=== PATIENT | female | born 1985 | race Caucasian/White ===

== ENCOUNTER 2021-07-20 21:34 | Emergency (ER) | payer MEDICARE, MEDICAID, SELFPAY ==
[2021-07-20 22:10] VITALS: BP 125/87; PULSE 75; RESP 17; TEMP 36.7; O2SAT 100; BMI 45.6
--- NOTE | 2021-07-21 00:01 | ED_ITS ---
HPI - General Adult General Chief complaint: General Medical Stated complaint: numbness, weakness Time Seen by Provider: 07/20/21 22:57 Source: patient Mode of arrival: ambulatory Limitations: no limitations History of Present Illness HPI narrative: 35-year-old female who presents emergency department for evaluation of left arm, left leg numbness and incoordination of her left arm and left leg. Patient states that her symptoms started 2 months ago. She states that at that time she had chest pain and shortness of breath. She then developed numbness and tingling S of both hands and feet. She also had numbness of her lips. She states that she was concerned that she was having a stroke and went to an emergency department. She was told that she was dehydrated. She states that since that time, she has had intermittent numbness of her right arm and right leg. She has also had persistent numbness of her left arm and left leg. She states that she has also developed incoordination of her left arm and left leg and states that she is frequently dropping things. She states that she occasionally loses her balance as well. She states that today her left arm felt very heavy in the numbness was more severe therefore she came to the emergency department for evaluation. She states that she has seen her PCP and has been referred to a neurologist. She is also scheduled to have a nerve conduction study. She denied fever, chills, chest pain, shortness of breath, nausea, vomiting. Related Data Allergies Allergy/AdvReac Type Severity Reaction Status Date / Time erythromycin base Allergy Severe ANAPHYLAXIS Verified 07/20/21 22:09 [ERYTHROMYCIN BASE] Penicillins [PENICILLINS] Allergy Severe ANAPHYLAXIS, Unverified 08/04/20 19:43 ITCHING ziprasidone [From GEODON] Allergy Unknown NEUROLOGICA Unverified 08/04/20 19:43 L diphenhydramine AdvReac Unknown PANIC Unverified 08/04/20 19:43 [From BENADRYL] ATTACK divalproex sodium AdvReac Unknown NEUROLOGICA Unverified 08/04/20 19:43 [From DEPAKOTE] L Review of Systems Review of Systems: Yes all other systems are reviewed and are negative [facility] Past Medical History Medical History (Updated 07/21/21 @ 00:03 by Sam Barth MD) Depression Migraines Obesity PCOS (polycystic ovarian syndrome) PTSD (post-traumatic stress disorder) Surgical History (Updated 07/20/21 @ 22:12 by Annie Alexander RN) History of ankle surgery S/P cholecystectomy Social History Social History Advance Directives: No Patient : No Physical Exam Vital Signs: Vital Signs: Last Vital Signs Temp 98.0 F 07/20/21 22:10 Pulse 75 07/20/21 22:10 Resp 17 07/20/21 22:10 BP 125/87 07/20/21 22:10 Pulse Ox 100 07/20/21 22:10 Body Mass Index 45.6 Const: General: cooperative and no acute distress Orientation/consciousness: oriented to person and oriented to place Limitations: no limitations HENMT: Head: Yes normal to inspection, Yes normocephalic and Yes atraumatic Ears: external ears normal General nose exam: Normal external nose present Face and sinus: Yes normal facial exam Mouth: Normal oral and palatal mucosa present Throat: Yes posterior oropharynx normal Eyes: General: appearance normal, both eyes and all related structures Pupils: Equal, round and reactive pupils present Neck: Neck: Yes normal visual inspection, Yes no lymphadenopathy, Yes trachea midline and Yes supple Chest: Chest palpation & inspection: normal inspection of the chest and normal palpation of entire chest wall Resp: Effort & Inspection: normal respiratory effort and able to speak in complete sentences Auscultation: clear to auscultation bilaterally Cardio: Rate: regular rate Rhythm: regular rhythm Heart sounds: S1 david l heart sound present, S2 normal heart sound present and no murmurs GI: Inspection: Yes normal to inspection and Yes obesity Palpation (GI): Soft to palpation, nontender and no guarding Auscultation: normal bowel sounds : General: Yes no CVA tenderness Back/Spine/Pelvis: Back: no CVA tenderness Skin: General skin exam: no rashes or lesions noted Neuro: General: oriented to person and oriented to place Cranial nerves: Yes CN's II-XII intact bilaterally and Yes Equal, round and reactive pupils present Cognition (Neuro): normal cognition Gait exam (Neuro): Normal gait present Motor exam (neuro): 5/5 motor strength present throughout Sensory Exam: other (Normal light touch bilaterally) Deep tendon reflexes (DTR's): Rt Biceps (C5, C6): 1+, Right brachioradialis reflex intensity grade: 1+, Right patellar reflex intensity grade: 1+ and Left patellar reflex intensity grade: 1+ Coordination: [id number] test normal and [id number]-[id number] test normal Extrem: General: Yes normal to inspection Psych: Appearance: grossly normal Speech and movement: Normal speech and movement present Affect: normal affect Attitude: cooperative Thought process: Normal thought process present Thought content: Normal thought content present Course Course Course Narrative: 35-year-old female who presents emergency department for evaluation of persistent numbness of her left arm and left leg with intermittent numbness of the right arm and right leg. She also complains of incoordination of her left arm and states that she is having difficulty walking and occasional ly tripping secondary to numbness of her left leg. Patient states that her left arm symptoms got worse today so she came to the emergency department for evaluation. Patient's symptoms began 2 months prior after she had an episode chest pain and shortness of breath. The initial onset is consistent with panic attacks/hyperventilation syndrome however this does not explain his persistent numbness and her incoordination of the left side. The patient's physical examination revealed a nonfocal neurologic exam with normal reflexes. At this time I do not have a clear cause for her symptoms. The patient was discharged home she was given a note not return to work for 4 days and she was advised to follow-up with her PCP. Discharge Plan Discharge Clinical Impression: Numbness and tingling of left arm and leg Patient Disposition: Home, Self-Care Instructions: Paresthesia (ED) Additional Instructions: At this time I do not have a clear cause for the numbness of your left arm and left leg. Your neurologic exam was unremarkable and you did have normal reflexes which is reassuring. Follow-up with your neurologist as scheduled and with your PCP for further evaluation Follow-up with your doctor in 2 days. Please return to the emergency department if your symptoms get worse or if you develop any symptoms that are concerning to you. Stand Alone Forms: Work/School Release
== END 2021-07-21 00:28 | disposition home or self-care (01) ==
PROVIDERS: Emergency Provider Emergency Medicine Emergency Medical Services; PCP Nurse Practitioner Adult Health
DX: R20.0 Anesthesia of skin (principal); M54.2 Cervicalgia
CPT/HCPCS: 99283

== ENCOUNTER 2021-09-30 12:38 | Emergency (ER) | payer MEDICARE, MEDICAID, SELFPAY ==
[2021-09-30 12:43] VITALS: BP 133/76; PULSE 89; RESP 18; TEMP 36.8; O2SAT 96; BMI 45.6
--- NOTE | 2021-09-30 14:27 | ED.GENADULT ---
HPI - General Adult General Chief complaint: Dental/Oral Stated complaint: dental pain Time Seen by Provider: 09/30/21 14:27 Source: patient Mode of arrival: ambulatory Limitations: no limitations History of Present Illness HPI narrative: 36-year-old female is here today for complaining of tooth pain. Patient was seen by her dentist 3 days ago and he tried to extract her molar #18 and he was unable to do that. Patient was referred to Oral surgery and unable to get an appointment until October. Patient has a mild swelling to her left jaw and reports to have a lot of pain. She was put on clindamycin and today is the 2nd day of the antibiotic. Patient is in the latter pain and seeking something to help her with the pain. Onset (ago): day(s) Location: mouth Severity scale (1-10): 9 (Take ibuprofen at home) Quality: aching Related Data Previous Rx's Medication Instructions Recorded clindamycin HCl 300 mg capsule 300 mg PO Q8H 7 Days #21 cap 09/30/21 oxycodone 5 mg tablet 5 mg PO Q4-6H PRN #7 tab 09/30/21 Allergies Allergy/AdvReac Type Severity Reaction Status Date / Time erythromycin base Allergy Severe ANAPHYLAXIS Verified 09/30/21 12:43 [ERYTHROMYCIN BASE] Penicillins [PENICILLINS] Allergy Severe ANAPHYLAXIS, Verified 09/30/21 12:43 ITCHING ziprasidone [From GEODON] Allergy Unknown NEUROLOGICA Verified 09/30/21 12:43 L diphenhydramine AdvReac Unknown PANIC Verified 09/30/21 12:43 [From BENADRYL] ATTACK divalproex sodium AdvReac Unknown NEUROLOGICA Verified 09/30/21 12:43 [From DEPAKOTE] L Review of Systems Review of Systems: Constitutional : No Weight loss, No Fever, No Chills, No Night Sweats, No Fatigue, No Malaise ENT/Mouth : No Hearing loss, No Ear Pain, No Nasal Congestion, No Sinus Pain, No Hoarseness, No sore throat, No Rhinorrhea, No Swallowing Difficulty, dental pain Eyes: No Eye Pain, No Swelling, No Redness, No Foreign Body, No Discharge, No Vision Changes Cardiovascular : No Chest Pain, No SOB, No Dyspnea on Exertion, No Orthopnea, No Edema, No Palpitations Respiratory : No Cough, No Sputum, No Wheezing, No Smoke Exposure, No Dyspnea Gastrointestinal : No Nausea, No Vomiting, No Diarrhea, No Constipation, No abdominal Pain, No Hematochezia, No Melena Genitourinary : no irregular bleeding, No Dysuria, No Urinary Frequency, No Hematuria, No Urinary Incontinence, No Urgency, No Flank Pain, No Urinary Flow Changes, No Hesitancy Musculoskeletal : No joint pain, No Myalgias, No Joint Swelling Skin : No Skin Lesions, No rash Neuro : No Weakness, No Numbness, No Paresthesias, No Loss of Consciousness, No Dizziness, No Headache Psych : No Anxiety/Panic, No Depression, No SI/HI/AH/VH, No Social Issues, Yes all other systems are reviewed and are negative [facility] Past Medical History Medical History (Updated 09/30/21 @ 14:35 by Bianca Streeter [facility]) Depression Migraines Obesity PCOS (polycystic ovarian syndrome) PTSD (post-traumatic stress disorder) Surgical History History of ankle surgery S/P cholecystectomy Social History Social History Advance Directives: No Advance Directives Information Provided: No Patient : No Physical Exam Vital Signs: Vital Signs: Last Vital Signs Temp 98.3 F 09/30/21 12:43 Pulse 89 09/30/21 12:43 Resp 18 09/30/21 12:43 BP 133/76 09/30/21 12:43 Pulse Ox 96 09/30/21 12:43 Body Mass Index 45.6 Const: General: healthy appearing, no acute distress and well developed Nutritional Appearance: well nourished Orientation/consciousness: patient oriented x3 HENMT: Head: Yes normal to inspection, Yes normocephalic and Yes atraumatic Ears: hearing grossly normal bilaterally, external ears normal and TM's normal bilaterally General nose exam: Normal external nose present and Normal nares present Face and sinus: Yes normal facial exam Mouth: Normal oral and palatal mucosa present Teeth and gingiva: abnormal tooth and associated gingiva Teeth image: 1. Dental caries Throat: Yes posterior oropharynx normal, Yes tonsils normal and Yes uvula midline Eyes: General: appearance normal, both eyes and all related structures Neck: Neck: Yes normal visual inspection, Yes full ROM and Yes trachea midline Thyroid: Thyroid normal Resp: Effort & Inspection: normal respiratory effort, able to speak in complete sentences, no tracheal deviation and symmetric chest movement Auscultation: clear to auscultation bilaterally Cardio: Jugular venous distension: no JVD Rate: regular rate Rhythm: regular rhythm Heart sounds: S1 normal heart sound present, S2 normal heart sound present, no gallops and no murmurs GI: Inspection: Yes normal to inspection and No distended Palpation (GI): Soft to palpation, not firm, nontender and No hepatosplenomegaly present Auscultation: normal bowel sounds : General: Yes no CVA tenderness Back/Spine/Pelvis: Back: no CVA tenderness Skin: General skin exam: elasticity normal, turgor normal and dry skin Neuro: General: patient oriented x3 Psych: Appearance: grossly normal Mental Status: mental status grossly normal Speech and movement: Normal speech and movement present Affect: normal affect Attitude: cooperative Thought process: Normal thought process present Thought content: Normal thought content present Insight: Good insight present (Psych) Judgement: Good judgement present (Psych) Course Course Course Narrative: 36-year-old female with complaining of tooth pain. Patient was supposed to have her tooth extracted however her dentist was unable to do that and refer her to oral surgery. Patient is unable to get an appointment until October. # 18 molar, mild gingivitis and no abscess. Patient is taking clindamycin 2nd day today, was taking ibuprofen with not much relief. Will send her script for oxycodone and clindamycin 300 mg. Patient is unsure of what dose is she taking. She was instructed to call oral surgery on Saturday for sooner appointment. Discussed with her the only way that she will get rid of the infection is by getting rid of the tooth. Discharge Plan Discharge Clinical Impression: Toothache, Dental caries Patient Disposition: Home, Self-Care Instructions: Toothache (ED) Additional Instructions: You were seen here today for complaining of tooth pain. Please continue the antibiotics that were given to you by your dentist. Continue ibuprofen to decrease the swelling. You will be given script for oxycodone to help with the pain. Please make sure you do not drive when you take this medication or drink alcohol. Please make sure that you call the oral surgeons for tooth extraction. You may return to emergency department if you symptoms will get worse or if you experience any additional concerning symptoms. Prescriptions: New clindamycin HCl 300 mg capsule 300 mg PO Q8H 7 Days Qty: 21 RF: 0 oxycodone 5 mg tablet 5 mg PO Q4-6H PRN (Reason: pain) Qty: 7 RF: 0 Interventions: ED Discharge Assessment Last Done: 09/30/21 14:41 Discharge Date/Time: 09/30/21 14:41
== END 2021-09-30 14:41 | disposition home or self-care (01) ==
PROVIDERS: Emergency Provider Emergency Medicine Emergency Medical Services
DX: K02.9 Dental caries, unspecified (principal); Z79.899 Other long term (current) drug therapy
CPT/HCPCS: 99283

== ENCOUNTER 2021-11-05 13:52 | Emergency (ER) | payer MEDICARE, MEDICAID, SELFPAY ==
--- NOTE | ~2021-11-05 | CT_ITS ---
EXAMINATION: CT FACIAL BONES WITHOUT CONTRAST CLINICAL INFORMATION: Jaw swelling. COMPARISON: [facility] dated from 07/14/2019. TECHNIQUE: Noncontrast CT images of the maxillofacial structures with axial, coronal and sagittal reformats. This CT examination was performed using dose optimization techniques as appropriate, variously including the following: *Automated exposure control *Adjustment of mA and/or kV according to patient size (this includes techniques or standardized protocols for targeted exams where dose is matched to indication/reason for exam; i.e. extremities or head) *Use of iterative reconstruction technique DLP: 517 mGy-cm FINDINGS: There is no acute maxillofacial fracture. The pterygoid plates are intact. The zygomatic arches are intact. The lamina papyracea are intact. The orbital rims are intact. There is mucosal thickening of the paranasal sinuses with inspissated mucous secretions in both maxillary sinuses and partial opacification of the ethmoidal air cells.. No air-fluid levels are seen. There is right deviation of the nasal septum. There are several periapical lucencies, including a cavity within a tooth extraction in the area of the left inferior posterior molar (8:71). Postsurgical changes in the right mastoid. Left mastoid is clear. The orbits are normal. 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 The imaged portions of the brain demonstrate no acute abnormality. CT/CT facial bones wo con IMPRESSION: No acute intracranial process or discrete facial bone fracture. Paranasal sinus disease. Correlate clinically for the presence of acute sinusitis. Periapical disease, recommend dental referral.
[2021-11-05 15:03] VITALS: BP 134/88; PULSE 99; RESP 20; TEMP 35.9; O2SAT 98; BMI 44.3
[2021-11-05 18:35] VITALS: BP 128/78; PULSE 78; RESP 18; TEMP 36.6; O2SAT 98
[2021-11-05 19:39] LABS: COVID-19 Test Negative (Negative)
[2021-11-05 21:55] VITALS: BP 132/84; PULSE 86; RESP 18; TEMP 36.4; O2SAT 100
--- NOTE | 2021-11-06 00:47 | PC.NURSE ---
PT HAD FALLEN OFF TRACKER AND ADONIS TOBIAS SIGNED DR JOSHI NAME TO PT BY MISTAKE AND DR JOSHI WAS NOT AWARE. PT FINE IN ROOM SEEN BY ADONIS TOBIAS.
[2021-11-06 00:49] LABS: Basophils Percent Auto 0.3 % (0-2); Eosinophils Percent Auto 0.6 % (0-4); Hematocrit 39.1 % (37.0-47.0); Hemoglobin 12.8 g/dl (12.0-16.0); Imm Gran Abs Auto 0.01 X10*3/uL (0.00-0.03); Imm Gran Pct Auto 0.2 % (0.0-0.4); Lymphocytes Absolute Auto 1.2 X10*3/uL (1.2-4.9); Lymphocytes Percent Auto 18.8 % (20-40); MANUAL DIFF FLAG NO; Mean Corpuscular HGB Conc 32.7 g/dl (31.0-35.0); Mean Corpuscular Hemoglobin 28.1 pg (27.0-33.0); Mean Corpuscular Volume 85.9 fL (80.0-98.0); Mean Platelet Volume 8.3 fL (9.4-12.3); Monocytes Absolute Auto 0.5 X10*3/uL (0.1-1.2); Monocytes Percent Auto 8.2 % (2-11); Neutrophils Absolute Auto 4.6 x10*3/uL (2.0-8.3); Neutrophils Percent Auto 71.9 % (45-73); Platelet Count 254 X10*3/uL (160-400); Red Blood Count 4.55 X10*6/uL (4.20-5.50); White Blood Count 6.3 X10*3/uL (4.8-10.8)
[2021-11-06 01:10] LABS: Alanine Aminotransferase 50 U/L (0-31); Albumin Level 4.3 g/dL (3.5-5.0); Alkaline Phosphatase 66 U/L (39-117); Anion Gap 13 (12-20); Aspartate Amino Transferase 50 U/L (5-31); Bilirubin Total 0.6 mg/dL (0.0-1.0); Blood Urea Nitrogen 9 mg/dL (9-16); Calcium 9.4 mg/dL (8.4-10.2); Carbon Dioxide 26 mmol/L (22-29); Chloride 104 mmol/L (96-108); Creatinine Clr Calc Pharmacy 138.9; Estimated Glomerular Filt Rate > 60; Glucose Random 94 mg/dL (60-115); Sodium 139 mmol/L (135-145); Total Protein 7.7 g/dL (6.5-8.0)
--- NOTE | 2021-11-06 01:50 | ED.DENTAL ---
HPI - Dental/Oral General Chief complaint: Dental/Oral Stated complaint: L SIDE OF FACE NUMBNESS DENTAL PAIN INFECTION Time Seen by Provider: 11/05/21 15:58 Source: patient Mode of arrival: ambulatory Limitations: no limitations History of Present Illness HPI Narrative: 36-year-old female presents for 1 week of sore throat, and of pain in her left jaw and pain in the left side of her face and her left sinuses. For patient has had dental Maharaj in her left lower molar, and she had a tooth extracted 6 weeks ago. However, oral surgeon could not get all of the tooth fragments, so 1 week ago, she had another surgery to extract all of the tooth fragments. She has been on clindamycin off and on for the last 6 weeks. States she had a fever of 102 today, did not take any antipyretics prior to arriving in the ER. Vitals are stable here, afebrile Related Data Previous Rx's Medication Instructions Recorded clindamycin HCl 300 mg capsule 300 mg PO Q8H 7 Days #21 cap 09/30/21 oxycodone 5 mg tablet 5 mg PO Q4-6H PRN #7 tab 09/30/21 doxycycline hyclate 100 mg tablet 100 mg PO BID 10 Days #20 tab 11/06/21 Allergies Allergy/AdvReac Type Severity Reaction Status Date / Time erythromycin base Allergy Severe ANAPHYLAXIS Verified 09/30/21 12:43 [ERYTHROMYCIN BASE] Penicillins [PENICILLINS] Allergy Severe ANAPHYLAXIS, Verified 09/30/21 12:43 ITCHING ziprasidone [From GEODON] Allergy Unknown NEUROLOGICA Verified 09/30/21 12:43 L diphenhydramine AdvReac Unknown PANIC Verified 09/30/21 12:43 [From BENADRYL] ATTACK divalproex sodium AdvReac Unknown NEUROLOGICA Verified 09/30/21 12:43 [From DEPAKOTE] L Review of Systems Constitutional: Constitutional: Denies body ache(s), Denies chills, Denies fatigue, Denies fever(s), Reports headache(s), Denies malaise and Denies weakness Eyes: Eyes: Denies diplopia ENT: Denies vertigo, Denies dizziness, Reports otalgia, Reports headache(s), Reports mouth pain, Reports sinus pain, Reports sinus pressure, Reports sore throat and Denies throat swelling Cardiovascular: Cardiovascular: Denies chest pain, Denies syncope, Denies leg edema, Denies lightheadedness and Denies dyspnea Respiratory: Respiratory: Denies cough and Denies dyspnea Gastrointestinal: Gastrointestinal: Denies abdominal pain, Denies hematochezia, Denies constipation, Denies diarrhea and Denies vomiting Musculoskeletal: Musculoskeletal: Reports no additional musculoskeletal complaints Neurologic: Denies confusion, Denies vertigo, Denies dizziness, Denies syncope, Reports headache(s) and Denies weakness Psychiatric: Psychiatric: Denies anxiety, Denies confusion and Denies depression Endocrine: Endocrine: Denies fatigue Allergic/Immunologic: Allergic/Immunologic: Denies throat swelling [facility] Past Medical History Medical History Depression Migraines Obesity PCOS (polycystic ovarian syndrome) PTSD (post-traumatic stress disorder) Surgical History History of ankle surgery S/P cholecystectomy Social History Social History Advance Directives: No Advance Directives Information Provided: No Physical Exam Vital Signs: Vital Signs: Last Vital Signs Temp 97.6 F 11/05/21 21:55 Pulse 86 11/05/21 21:55 Resp 18 11/05/21 21:55 BP 132/84 11/05/21 21:55 Pulse Ox 100 11/05/21 21:55 BMI result Body Mass Index 44.3 Const: General: no acute distress, alert and awake; No confusion Nutritional Appearance: obese Orientation/consciousness: patient oriented x3 and No confusion Limitations: no limitations HENMT: Head: Yes normal to inspection, Yes normocephalic and Yes atraumatic Ears: hearing grossly normal bilaterally, external ears normal, TM's normal bilaterally and EAC's normal General nose exam: Normal external nose present Face and sinus: Yes Facial tenderness on exam of face and sinuses Mouth: Normal oral and palatal mucosa present Teeth image: 1. Extracted tooth with dissolvable sutures, no abscess Throat: Yes posterior oropharynx normal Eyes: Conjunctivae: conjunctivae normal Pupils: Equal, round and reactive pupils present EOM: EOMs intact bilaterally Neck: Neck: Yes full ROM, Yes no lymphadenopathy and Yes supple Resp: Effort & Inspection: normal respiratory effort and able to speak in complete sentences Auscultation: clear to auscultation bilaterally, no crackles, no rales, no rhonchi and no wheezes Cardio: Rate: regular rate Rhythm: regular rhythm Heart sounds: S1 normal heart sound present and S2 normal heart sound present GI: Inspection: Yes normal to inspection Palpation (GI): Soft to palpation, nontender, no guarding and not rigid Percussion: Yes normal to percussion Auscultation: normal bowel sounds Skin: General skin exam: no rashes or lesions noted Neuro: General: patient oriented x3 and No confusion Cranial nerves: Yes Equal, round and reactive pupils present Extrem: General: Yes normal to inspection and Yes full ROM Psych: Appearance: grossly normal Affect: normal affect Attitude: cooperative Thought process: Normal thought process present Course Course Course Narrative: I initially signed up for this patient, but then was told that she left. Patient states that she was in the waiting room, waiting to be seen. 36-year-old female with 3 months of dental pain, now with left-sided sinus pain and pressure for the last 3 days. On exam, patient has left lower jaw swelling, she has no trismus, she has no submandibular swelling, no swelling in the floor for mouth, no mastoid tenderness. Because patient has had a tooth extracted with complications, and has had a dental abscess for 6 weeks, and concerned for abscess in sinuses. CT of patient's sinuses, and got basic labs. Labs are normal, CT shows dental abscess with sinusitis. Labs only remarkable for mildly elevated AST and ALT. Patient is allergic to penicillin, so we will forego of 10 and treat cellules size with doxycycline. The patient to follow up with her oral surgeon if her dental pain did not resolve Patient verbalized agreement understanding, all questions were answered to her satisfaction. MDM - Dental/Oral Lab Data Result diagrams: 11/06/21 00:41 11/06/21 00:41 Labs: Lab Results 11/05/21 11/06/21 11/06/21 Range/Units 19:11 00:41 00:41 WBC 6.3 (4.8-10.8) X10*3/uL RBC 4.55 (4.20-5.50) X10*6/uL Hgb 12.8 (12.0-16.0) g/dl Hct 39.1 (37.0-47.0) % MCV 85.9 (80.0-98.0) fL MCH 28.1 (27.0-33.0) pg MCHC 32.7 (31.0-35.0) g/dl RDW 14.0 (11.0-16.0) % Plt Count 254 (160-400) X10*3/uL MPV 8.3 L (9.4-12.3) fL Immature Gran % (Auto) 0.2 (0.0-0.4) % Neut % (Auto) 71.9 (45-73) % Lymph % (Auto) 18.8 L (20-40) % [place] % (Auto) 8.2 (2-11) % Eos % (Auto) 0.6 (0-4) % Baso % (Auto) 0.3 (0-2) % Lymph # (Auto) 1.2 (1.2-4.9) X10*3/uL [place] # (Auto) 0.5 (0.1-1.2) X10*3/uL Eos # (Auto) 0.0 (0.0-0.4) X10*3/uL Baso # (Auto) 0.0 (0.0-0.2) X10*3/uL Abs Immat Gran (auto) 0.01 (0.00-0.03) X10*3/uL Absolute Neuts (auto) 4.6 (2.0-8.3) x10*3/uL Absolute Nucleated RBC 0.000 (0.0-0.012) X10*3/uL Nucleated RBC % (auto) 0.0 (0.0-0.2) /100WBC Sodium 139 (135-145) mmol/L Potassium 4.0 (3.3-5.1) mmol/L Chloride 104 (96-108) mmol/L Carbon Dioxide 26 (22-29) mmol/L Anion Gap 13 (12-20) BUN 9 (9-16) mg/dL Creatinine 0.84 (0.5-1.4) mg/dL Estim Creat Clear Calc 138.9 Estimated GFR > 60 Random Glucose 94 (60-115) mg/dL Calcium 9.4 (8.4-10.2) mg/dL Total Bilirubin 0.6 (0.0-1.0) mg/dL AST 50 H (5-31) U/L ALT 50 H (0-31) U/L Alkaline Phosphatase 66 (39-117) U/L Total Protein 7.7 (6.5-8.0) g/dL Albumin 4.3 (3.5-5.0) g/dL COVID-19 (GAGE) Negative (Negative) COVID-19 Clin Com See Note Discharge Plan Discharge Clinical Impression: Sinusitis Qualifiers: Sinusitis location: maxillary Chronicity: acute Recurrence: non-recurrent Qualified Code(s): J01.00 - Acute maxillary sinusitis, unspecified Patient Disposition: Home, Self-Care Instructions: Sinusitis (ED) Additional Instructions: Please buy for the [employer] Med sinus rinse we discussed, and use for your sinusitis. Please pick appears prescription tomorrow morning intake doxycycline for the next 10 days. Please call your dentist if after 3 or 4 days you still have left lower dental pain. Please return if you have fevers, worsening draw swelling, or you cannot open her mouth. Prescriptions: New doxycycline hyclate 100 mg tablet 100 mg PO BID 10 Days Qty: 20 RF: 0 No Action clindamycin HCl 300 mg capsule 300 mg PO Q8H 7 Days Qty: 21 RF: 0 oxycodone 5 mg tablet 5 mg PO Q4-6H PRN (Reason: pain) Qty: 7 RF: 0 Stand Alone Forms: Work/School Release Interventions: LWBS Worksheet Last Done: 11/05/21 16:10 ED Discharge Assessment Last Done: 11/06/21 01:38 Discharge Date/Time: 11/06/21 01:40
== END 2021-11-06 01:40 | disposition home or self-care (01) ==
PROVIDERS: Physician Assistant; Emergency Provider Emergency Medicine
DX: J01.00 Acute maxillary sinusitis, unspecified (principal); Z20.822 Contact with and (suspected) exposure to COVID-19; R51.9 Headache, unspecified; R22.0 Localized swelling, mass and lump, head
CPT/HCPCS: 36415; 70486; 80053; 85025; 87635; 99284

== ENCOUNTER 2022-01-04 12:56 | Emergency (ER) | payer OTHER, MEDICARE, MEDICAID, SELFPAY ==
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
--- NOTE | ~2022-01-04 | XR_ITS ---
EXAMINATION: LUMBAR SPINE AND LEFT SHOULDER CLINICAL INFORMATION: Pain COMPARISON: None TECHNIQUE: Three-view lumbar spine and three-view left shoulder FINDINGS: There are 5 nonrib bearing lumbar vertebra. No acute fracture, spondylolisthesis, or spondylolysis is appreciated. Disc spaces are maintained. Pedicles appear intact. There is mild marginal spurring seen at the L1 level. There is some mild sclerosis about the right sacroiliac joint but without evidence of fusion or widening. There is no evidence of acute fracture or dislocation of the left shoulder. Glenohumeral joint appears unremarkable. No calcific tendinitis. No significant acromioclavicular joint abnormality. No widening of the coracoclavicular space is seen. XR/XR lumbar spine 2-3V IMPRESSION: No significant bony abnormality identified of the lumbar spine or left shoulder.
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
--- NOTE | ~2022-01-04 | XR_ITS ---
EXAMINATION: LUMBAR SPINE AND LEFT SHOULDER CLINICAL INFORMATION: Pain COMPARISON: None TECHNIQUE: Three-view lumbar spine and three-view left shoulder FINDINGS: There are 5 nonrib bearing lumbar vertebra. No acute fracture, spondylolisthesis, or spondylolysis is appreciated. Disc spaces are maintained. Pedicles appear intact. There is mild marginal spurring seen at the L1 level. There is some mild sclerosis about the right sacroiliac joint but without evidence of fusion or widening. There is no evidence of acute fracture or dislocation of the left shoulder. Glenohumeral joint appears unremarkable. No calcific tendinitis. No significant acromioclavicular joint abnormality. No widening of the coracoclavicular space is seen. XR/XR shoulder LT min 2V IMPRESSION: No significant bony abnormality identified of the lumbar spine or left shoulder.
[2022-01-04 13:26] VITALS: BP 118/82; PULSE 90; RESP 19; TEMP 36.6; O2SAT 99; BMI 45.6
[2022-01-04 14:26] LABS: UPreg QC Valid YES; Urine Pregnancy NEGATIVE (NEGATIVE)
[2022-01-04 15:56] VITALS: BP 99/61; PULSE 85; RESP 16; TEMP 36.7; O2SAT 100
[2022-01-04] MEDS: Ondansetron ODT 4 MG TAB.RAPDIS TRANSLINGU (15:58)
[2022-01-04] MEDS: Acetaminophen 325 MG TABLET 975 MG PO (15:58)
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
== END 2022-01-04 17:17 | disposition home or self-care (01) ==
PROVIDERS: Physician Assistant; Emergency Provider Emergency Medicine Emergency Medical Services; PCP Nurse Practitioner Adult Health
DX: S13.4XXA Sprain of ligaments of cervical spine, initial encounter (principal); M54.2 Cervicalgia; M25.512 Pain in left shoulder; M54.50 Low back pain, unspecified; G44.309 Post-traumatic headache, unspecified, not intractable; V43.52XA Car driver injured in collision with other type car in traffic accident, initial encounter; Y93.9 Activity, unspecified; Y92.410 Unspecified street and highway as the place of occurrence of the external cause; Y99.9 Unspecified external cause status; Z79.899 Other long term (current) drug therapy
CPT/HCPCS: 70450; 72100; 72125; 73030; 81025; 99284

== ENCOUNTER 2022-07-07 18:47 | Emergency (ER) | payer MEDICARE, MEDICAID, SELFPAY ==
[2022-07-07 19:00] VITALS: BP 134/68; PULSE 106; RESP 18; TEMP 36.8; O2SAT 99; BMI 45.8
[2022-07-07 19:56] VITALS: BP 119/73; PULSE 104; RESP 18; TEMP 36.4; O2SAT 98
--- NOTE | 2022-07-07 22:21 | ED.DENTAL ---
HPI - Dental/Oral General Chief complaint: Dental/Oral Stated complaint: multiple complaints, adverse med reaction Time Seen by Provider: 07/07/22 22:13 Source: patient Mode of arrival: ambulatory Limitations: no limitations History of Present Illness HPI Narrative: patient with chronic dental problem with cavities efficient the right lower molar started on clindamycin 3 days ago claims that she had a rash on the face none at this time patient has taken clindamycin the past without any side effects patient does have a lot of allergies. Also patient with congestive for last 3 days tested for COVID at home which was positive patient is not vaccinated against COVID Related Data Previous Rx's Medication Instructions Recorded clindamycin HCl 300 mg capsule 300 mg PO Q8H 7 days #21 caps 09/30/21 oxycodone 5 mg tablet 5 mg PO Q4-6H PRN pain #7 tabs 09/30/21 doxycycline hyclate 100 mg tablet 100 mg PO BID 10 days #20 tabs 11/06/21 cyclobenzaprine 10 mg tablet 10 mg PO TID PRN muscle spasm 7 01/04/22 days #21 tabs naproxen 500 mg tablet 500 mg PO BID PRN pain 10 days #20 01/04/22 tabs sulfamethoxazole 800 1 tab PO BID #20 tabs 07/07/22 mg-trimethoprim 160 mg tablet (Bactrim DS) Allergies Allergy/AdvReac Type Severity Reaction Status Date / Time erythromycin base Allergy Severe ANAPHYLAXIS Verified 09/30/21 12:43 [ERYTHROMYCIN BASE] Penicillins [PENICILLINS] Allergy Severe ANAPHYLAXIS, Verified 09/30/21 12:43 ITCHING clindamycin Allergy Unknown Facial Verified 07/07/22 19:00 Swelling ziprasidone [From GEODON] Allergy Unknown NEUROLOGICA Verified 09/30/21 12:43 L amoxicillin [From Augmentin] Allergy Anaphylaxis Verified 07/07/22 19:00 clavulanic acid Allergy Anaphylaxis Verified 07/07/22 19:00 [From Augmentin] diphenhydramine AdvReac Unknown PANIC Verified 09/30/21 12:43 [From BENADRYL] ATTACK divalproex sodium AdvReac Unknown NEUROLOGICA Verified 09/30/21 12:43 [From DEPAKOTE] L Review of Systems Review of Systems: Yes all other systems are reviewed and are negative PMFSH Past Medical History Medical History Depression Migraines Obesity PCOS (polycystic ovarian syndrome) PTSD (post-traumatic stress disorder) Surgical History History of ankle surgery S/P cholecystectomy Social History Social History Advance Directives: No Advance Directives Information Provided: No Physical Exam Vital Signs: Vital Signs: Last Vital Signs Temp 97.6 F 07/07/22 19:56 Pulse 104 H 07/07/22 19:56 Resp 18 07/07/22 19:56 BP 119/73 07/07/22 19:56 Pulse Ox 98 07/07/22 19:56 O2 Del Method 07/07/22 19:56 BMI result Body Mass Index 45.8 Appearance: Alert. Oriented X3. No acute distress. ENT: Pharynx normal. Oral Mucosa moist tender right 2nd more with slight gum swelling Neck: Normal inspection. Neck supple. CVS: Normal heart rate and rhythm. Pulses normal. Respiratory: No respiratory distress. Equal air entry bilateral, no wheezing/rales/rhonchi Abd: soft nontender Skin: Skin warm and dry. Normal skin color. Normal skin turgor. Extremities: No lower extremity edema. Neuro: Oriented X 3. MDM - Dental/Oral Lab Data Attestation: I reviewed the patient's lab results. Labs: Lab Results 07/07/22 Range/Units 22:52 COVID-19 (GAGE) Positive A (Negative) COVID-19 Clin Com See Note Discharge Plan Discharge Clinical Impression: Dental caries, COVID-19 Patient Disposition: Home, Self-Care Instructions: Toothache (ED), COVID-19 (Coronavirus Disease 2019) (ED) Additional Instructions: Social distancing and isolation as advised Antibiotic for dental abscess as prescribed Follow-up with dentist Prescriptions: New sulfamethoxazole-trimethoprim [Bactrim DS] 800-160 mg tablet 1 tab PO BID Qty: 20 0RF No Action doxycycline hyclate 100 mg tablet 100 mg PO BID 10 Days Qty: 20 0RF clindamycin HCl 300 mg capsule 300 mg PO Q8H 7 Days Qty: 21 0RF oxycodone 5 mg tablet 5 mg PO Q4-6H PRN (Reason: pain) Qty: 7 0RF Rx Instructions: Patient may request fewer tablets than prescribed naproxen 500 mg tablet 500 mg PO BID PRN (Reason: pain) 10 Days Qty: 20 0RF cyclobenzaprine 10 mg tablet 10 mg PO TID PRN (Reason: muscle spasm) 7 Days Qty: 21 0RF Rx Instructions: side effect is drowsiness. Do not at work or while driving. Interventions: ED Discharge Assessment Last Done: 07/07/22 23:30 Discharge Date/Time: 07/07/22 23:31
[2022-07-07] MEDS: Sulfamethox/Trimeth 800/160 TABLET 1 TAB PO (22:58)
[2022-07-07 23:04] LABS: COVID-19 Test Positive (Negative); IDNOW Serial# 55D5AD1C
== END 2022-07-07 23:31 | disposition home or self-care (01) ==
PROVIDERS: Emergency Provider Internal Medicine
DX: U07.1 COVID-19 (principal); K02.9 Dental caries, unspecified; E66.9 Obesity, unspecified; Z68.42 Body mass index [BMI] 45.0-49.9, adult
CPT/HCPCS: 87635; 99282; 99283

== ENCOUNTER 2022-07-22 11:42 | Emergency (ER) | payer MEDICARE, MEDICAID, SELFPAY ==
--- NOTE | ~2022-07-22 | XR_ITS ---
EXAMINATION: XR CHEST CLINICAL INFORMATION: Shortness of breath, status post COVID. COMPARISON: None TECHNIQUE: 2 views of the chest were obtained. FINDINGS: The lungs are clear. There are no pleural effusions. The heart and mediastinal structures are unremarkable. XR/XR chest 2V IMPRESSION: Unremarkable examination.
--- NOTE | ~2022-07-22 | CT_ITS ---
EXAMINATION: CT ANGIOGRAM OF THE CHEST WITH AND WITHOUT CONTRAST (CT PULMONARY ANGIOGRAM FOR PE) CLINICAL INFORMATION: Pulmonary embolism. Shortness of breath. Recent COVID. COMPARISON: Chest radiograph from 07/22/2022. TECHNIQUE: Prior to contrast administration, noncontrast localization images were obtained. Subsequently, multidetector volumetric imaging was performed from the thoracic inlet to below the diaphragms following the administration of 80 mL Omnipaque 350 intravenous contrast. No contrast reaction reported. Sagittal, coronal, and MIP oblique sagittal reformatted images were obtained on the CT workstation, uploaded to PACS, and reviewed. This CT examination was performed using dose optimization techniques as appropriate, variously including the following: *Automated exposure control. *Adjustment of mA and/or kV according to patient size (this includes techniques or standardized protocols for targeted exams where dose is matched to indication/reason for exam; i.e. extremities or head). *Use of iterative reconstruction technique. DLP: 654 mGy-cm FINDINGS: QUALITY OF STUDY/CONTRAST BOLUS: Suboptimal. Evaluation of the segmental and subsegmental vessels is limited secondary to respiratory motion and quantum mottling related to patient body habitus. PULMONARY ARTERIES: No central pulmonary emboli. The segmental pulmonary arteries are not well evaluated within this limitation, there is no discrete evidence of segmental pulmonary emboli. THORACIC AORTA: Normal contour and caliber. No aneurysm or dissection. LUNG: No focal consolidation, nodules, or masses. PLEURA: No pleural effusion or pneumothorax. MEDIASTINUM: Normal heart size. No pericardial effusion. No hilar or mediastinal lymphadenopathy. No evidence of septal bowing or right heart strain. CHEST WALL/AXILLA: No axillary or internal mammary lymphadenopathy. OSSEOUS STRUCTURES: No acute or suspicious osseous abnormality. UPPER ABDOMEN: No demonstrated significant abnormalities of the visualized upper abdomen. No reflux of contrast into the hepatic veins to suggest elevated right heart pressures. CT/CT angio chest PE protocol IMPRESSION: Evaluation of the pulmonary arterial tree is suboptimal secondary to respiratory motion and quantum mottling related to patient body habitus. 1. Within the limitation of this exam, there is no evidence of pulmonary embolism. 2. No acute pulmonary abnormalities. VTE: negative
[2022-07-22 13:00] VITALS: BP 118/72; PULSE 108; RESP 18; TEMP 37.3; O2SAT 99; BMI 44.1
--- NOTE | 2022-07-22 15:39 | ED_ITS ---
HPI - SOB/Dyspnea General Chief Complaint: Dyspnea Stated Complaint: covid symptoms, asthma Time Seen by Provider: 07/22/22 13:49 Source: patient Mode of arrival: ambulatory Limitations: no limitations History of Present Illness HPI Narrative: patient presents emergency department for evaluation of shortness of breath. She states that she had a recent COVID- 19 infection, testing positive 2 weeks ago. She states that after approximately 1 week she had complete resolution of her symptoms. She was feeling fine. Then suddenly she developed return of symptoms. Over the past few days initially started with a dry nonproductive cough, and then developed shortness of breath only noted upon exertion, now feels as though she cannot catch her breath even while at rest. Reports a history of childhood asthma, but has not been on any steroids recently, or require the use of inhalers as an adult. She denies any chest pain, palpitations, lightheadedness, dizziness, pain or swelling to the lower extremities. Denies personal history of DVT/ PE, coagulation disorders, personal history of cancer, use of oral contraceptives, or cigarette smoking. Related Data Previous Rx's Medication Instructions Recorded clindamycin HCl 300 mg capsule 300 mg PO Q8H 7 days #21 caps 09/30/21 oxycodone 5 mg tablet 5 mg PO Q4-6H PRN pain #7 tabs 09/30/21 doxycycline hyclate 100 mg tablet 100 mg PO BID 10 days #20 tabs 11/06/21 cyclobenzaprine 10 mg tablet 10 mg PO TID PRN muscle spasm 7 01/04/22 days #21 tabs naproxen 500 mg tablet 500 mg PO BID PRN pain 10 days #20 01/04/22 tabs sulfamethoxazole 800 1 tab PO BID #20 tabs 07/07/22 mg-trimethoprim 160 mg tablet (Bactrim DS) albuterol sulfate 90 mcg/actuation 2 puff inhalation Q6H PRN 07/22/22 aerosol inhaler shortness of breath or wheezing #6.7 grams codeine 10 mg-guaifenesin 100 mg/5 5 ml PO Q6H PRN cough #118 mL 07/22/22 mL oral liquid (Guaifenesin AC) Allergies Allergy/AdvReac Type Severity Reaction Status Date / Time erythromycin base Allergy Severe ANAPHYLAXIS Verified 09/30/21 12:43 [ERYTHROMYCIN BASE] Penicillins [PENICILLINS] Allergy Severe ANAPHYLAXIS, Verified 09/30/21 12:43 ITCHING clindamycin Allergy Unknown Facial Verified 07/07/22 19:00 Swelling ziprasidone [From GEODON] Allergy Unknown NEUROLOGICA Verified 09/30/21 12:43 L amoxicillin [From Augmentin] Allergy Anaphylaxis Verified 07/07/22 19:00 clavulanic acid Allergy Anaphylaxis Verified 07/07/22 19:00 [From Augmentin] diphenhydramine AdvReac Unknown PANIC Verified 09/30/21 12:43 [From BENADRYL] ATTACK divalproex sodium AdvReac Unknown NEUROLOGICA Verified 09/30/21 12:43 [From DEPAKOTE] L Review of Systems Review of Systems: Constitutional : No Fever, No Chills ENT/Mouth : No sore throat, No Rhinorrhea, No Swallowing Difficulty Eyes: No Eye Pain, No Swelling, No Redness Cardiovascular : No Chest Pain, positive SOB, No Orthopnea, no Edema Respiratory : Positive Cough, No Sputum, No Wheezing, positive dyspnea Gastrointestinal : No Nausea, No Vomiting, No Diarrhea, No abdominal Pain, No Hematochezia, No Melena Genitourinary : No Dysuria, No Urinary Frequency, No Hematuria Musculoskeletal : No joint pain, No Myalgias Skin : No Skin Lesions, No rash Neuro : No Weakness, No Numbness, No Dizziness, No Headache Psych : No Anxiety/Panic, No Depression Heme/Lymph: No Bruising, No Lymphadenopathy Endocrine : No Polyuria, No Polydipsia Yes all other systems are reviewed and are negative PMFSH Past Medical History Attestation statement: The following information was validated with the patient. Source: old records reviewed Medical History Depression Migraines Obesity PCOS (polycystic ovarian syndrome) PTSD (post-traumatic stress disorder) Surgical History History of ankle surgery S/P cholecystectomy Social History Social History Advance Directives: No Advance Directives Information Provided: No Physical Exam Vital Signs: Vital Signs: Last Vital Signs Temp 98.9 F 07/22/22 16:00 Pulse 92 07/22/22 19:08 Resp 18 07/22/22 19:08 BP 115/46 L 07/22/22 19:08 Pulse Ox 100 07/22/22 19:08 O2 Del Method 07/22/22 19:08 BMI result Body Mass Index 44.1 Appearance: Alert.?Oriented to person, place and time. No acute distress.?Normal affect. Eyes: Pupils equal, round and reactive to light.? ENT: Pharynx normal.?? Neck: Normal inspection.? Neck supple.?? CVS: Heart sounds normal. Normal heart rate and rhythm.? Pulses normal.?? Respiratory: No respiratory distress.? Lung sounds clear to auscultation bilaterally, however overall diminished, likely secondary to body habitus?? Abdomen: Soft and non-tender. Normoactive bowel sounds. ? Skin: Skin warm and dry.? Normal skin color.? ? Extremities: No lower extremity edema.? No calf ttp? Neuro: Moves all extremities spontaneously. Sensation intact bilaterally. CN II- XII intact. No focal neuro deficits. Ambulates with normal steady gait. Course Course Course Narrative: Patient is a 36-year-old female with reported history of childhood has asthma, and recent COVID- 19 infection presents emergency department for evaluation of shortness of breath after complete resolution of her symptoms after COVID. 1555; reviewed patient's EKG no prior available for comparison reveals normal sinus rhythm with inferior and anterior/septal T-wave inversions. At this time will obtain CT angio of the chest to exclude pulmonary embolism in addition to CBC, CMP, troponin. risk factors for pulmonary embolism including recent COVID- 19 infection, and obesity. Discussed this finding with patient, she verbalized understanding. Has had CT scan with contrast in the past, denies any allergic reactions with this. Disposition pending results. Reevaluation(s) Reevaluation #1: CT of the chest with no evidence of pulmonary embolism. CMP is unremarkable. Troponin <3.5. CBC is overall unremarkable. Repeat EKG reveals No acute changes, she is without chest pain, has had no evidence of arrhythmia on telemetry in the emergency department. discussed this case with ED attending Dr. Mari, who agrees with plan of care for discharge home. patient remains without tachypnea, hypoxia, speaking clear full sentences. Ambulation trial without complication or hypoxia. Patient denies any known history of sleep apnea, however does report that she snores at night. Suspect cough and shortness of breath most likely be secondary to bronchitis given recent viral infection, patient to be discharged with albuterol inhaler, and antitussives. Reviewed worrisome signs and symptoms to return back to the emergency department for. Patient verbalized understanding, was discharged home in stable condition. Time: 19:41 MDM - SOB/Dyspnea Medical Records Attestation: I reviewed the patient's medical records. Lab Data Attestation: I reviewed the patient's lab results. Result diagrams: 07/22/22 16:19 07/22/22 16:19 Labs: Lab Results 07/22/22 07/22/22 07/22/22 Range/Units 16:13 16:14 16:14 WBC (4.8-10.8) X10*3/uL RBC (4.20-5.50) X10*6/uL Hgb (12.0-16.0) g/dl Hct (37.0-47.0) % MCV (80.0-98.0) fL MCH (27.0-33.0) pg MCHC (31.0-35.0) g/dl RDW (11.0-16.0) % Plt Count (160-400) X10*3/uL MPV (9.4-12.3) fL Immature Gran % (Auto) (0.0-0.4) % Neut % (Auto) (45-73) % Lymph % (Auto) (20-40) % [place] % (Auto) (2-11) % Eos % (Auto) (0-4) % Baso % (Auto) (0-2) % Lymph # (Auto) (1.2-4.9) X10*3/uL [place] # (Auto) (0.1-1.2) X10*3/uL Eos # (Auto) (0.0-0.4) X10*3/uL Baso # (Auto) (0.0-0.2) X10*3/uL Abs Immat Gran (auto) (0.00-0.03) X10*3/uL Absolute Neuts (auto) (2.0-8.3) x10*3/uL Absolute Nucleated RBC (0.0-0.012) X10*3/uL Nucleated RBC % (auto) (0.0-0.2) /100WBC Sodium (135-145) mmol/L Potassium (3.3-5.1) mmol/L Chloride (96-108) mmol/L Carbon Dioxide (22-29) mmol/L Anion Gap (12-20) BUN (9-16) mg/dL Creatinine (0.5-1.4) mg/dL Estim Creat Clear Calc Estimated GFR Random Glucose (60-115) mg/dL Calcium (8.4-10.2) mg/dL Total Bilirubin (0.0-1.0) mg/dL AST (5-31) U/L ALT (0-31) U/L Alkaline Phosphatase (39-117) U/L Troponin I High Sens (<3.5-17.0) ng/L B-Natriuretic Peptide (<100) pg/mL Total Protein (6.5-8.0) g/dL Albumin (3.5-5.0) g/dL Beta HCG, Quant mIU/mL Urine Color Yellow Urine Appearance Clear Urine pH 6.0 (5.0-9.0) Ur Specific [place] 1.010 (1.005-1.025) Urine Protein Negative (Neg-Trace) mg/dL Urine Glucose (UA) Negative (Negative) mg/dL Urine Ketones Negative (Negative) mg/dL Urine Blood Negative (Negative) Urine Nitrite Negative (Negative) Ur Leukocyte Esterase Negative (Negative) Urine Test NEGATIVE (NEGATIVE) COVID-19 (GAGE) Positive A (Negative) COVID-19 Clin Com See Note 07/22/22 07/22/22 07/22/22 Range/Units 16:19 16:19 16:19 WBC 10.9 H (4.8-10.8) X10*3/uL RBC 4.75 (4.20-5.50) X10*6/uL Hgb 13.6 (12.0-16.0) g/dl Hct 41.2 (37.0-47.0) % MCV 86.7 (80.0-98.0) fL MCH 28.6 (27.0-33.0) pg MCHC 33.0 (31.0-35.0) g/dl RDW 14.7 (11.0-16.0) % Plt Count 337 D (160-400) X10*3/uL MPV 8.3 L (9.4-12.3) fL Immature Gran % (Auto) 0.3 (0.0-0.4) % Neut % (Auto) 61.8 (45-73) % Lymph % (Auto) 28.9 (20-40) % [place] % (Auto) 7.4 (2-11) % Eos % (Auto) 1.0 (0-4) % Baso % (Auto) 0.6 (0-2) % Lymph # (Auto) 3.1 (1.2-4.9) X10*3/uL [place] # (Auto) 0.8 (0.1-1.2) X10*3/uL Eos # (Auto) 0.1 (0.0-0.4) X10*3/uL Baso # (Auto) 0.1 (0.0-0.2) X10*3/uL Abs Immat Gran (auto) 0.03 (0.00-0.03) X10*3/uL Absolute Neuts (auto) 6.7 (2.0-8.3) x10*3/uL Absolute Nucleated RBC 0.000 (0.0-0.012) X10*3/uL Nucleated RBC % (auto) 0.0 (0.0-0.2) /100WBC Sodium 138 (135-145) mmol/L Potassium 3.4 (3.3-5.1) mmol/L Chloride 102 (96-108) mmol/L Carbon Dioxide 23 (22-29) mmol/L Anion Gap 16 (12-20) BUN 14 D (9-16) mg/dL Creatinine 1.04 (0.5-1.4) mg/dL Estim Creat Clear Calc 108.4 Estimated GFR > 60 Random Glucose 93 (60-115) mg/dL Calcium 9.2 (8.4-10.2) mg/dL Total Bilirubin 0.7 (0.0-1.0) mg/dL AST 22 D (5-31) U/L ALT 23 (0-31) U/L Alkaline Phosphatase 86 D (39-117) U/L Troponin I High Sens < 3.5 (<3.5-17.0) ng/L B-Natriuretic Peptide (<100) pg/mL Total Protein 8.7 H (6.5-8.0) g/dL Albumin 4.6 (3.5-5.0) g/dL Beta HCG, Quant < 2 mIU/mL Urine Color Urine Appearance Urine pH (5.0-9.0) Ur Specific [place] (1.005-1.025) Urine Protein (Neg-Trace) mg/dL Urine Glucose (UA) (Negative) mg/dL Urine Ketones (Negative) mg/dL Urine Blood (Negative) Urine Nitrite (Negative) Ur Leukocyte Esterase (Negative) Urine Test (NEGATIVE) COVID-19 (GAGE) (Negative) COVID-19 Clin Com 07/22/22 Range/Units 16:19 WBC (4.8-10.8) X10*3/uL RBC (4.20-5.50) X10*6/uL Hgb (12.0-16.0) g/dl Hct (37.0-47.0) % MCV (80.0-98.0) fL MCH (27.0-33.0) pg MCHC (31.0-35.0) g/dl RDW (11.0-16.0) % Plt Count (160-400) X10*3/uL MPV (9.4-12.3) fL Immature Gran % (Auto) (0.0-0.4) % Neut % (Auto) (45-73) % Lymph % (Auto) (20-40) % [place] % (Auto) (2-11) % Eos % (Auto) (0-4) % Baso % (Auto) (0-2) % Lymph # (Auto) (1.2-4.9) X10*3/uL [place] # (Auto) (0.1-1.2) X10*3/uL Eos # (Auto) (0.0-0.4) X10*3/uL Baso # (Auto) (0.0-0.2) X10*3/uL Abs Immat Gran (auto) (0.00-0.03) X10*3/uL Absolute Neuts (auto) (2.0-8.3) x10*3/uL Absolute Nucleated RBC (0.0-0.012) X10*3/uL Nucleated RBC % (auto) (0.0-0.2) /100WBC Sodium (135-145) mmol/L Potassium (3.3-5.1) mmol/L Chloride (96-108) mmol/L Carbon Dioxide (22-29) mmol/L Anion Gap (12-20) BUN (9-16) mg/dL Creatinine (0.5-1.4) mg/dL Estim Creat Clear Calc Estimated GFR Random Glucose (60-115) mg/dL Calcium (8.4-10.2) mg/dL Total Bilirubin (0.0-1.0) mg/dL AST (5-31) U/L ALT (0-31) U/L Alkaline Phosphatase (39-117) U/L Troponin I High Sens (<3.5-17.0) ng/L B-Natriuretic Peptide < 10 (<100) pg/mL Total Protein (6.5-8.0) g/dL Albumin (3.5-5.0) g/dL Beta HCG, Quant mIU/mL Urine Color Urine Appearance Urine pH (5.0-9.0) Ur Specific [place] (1.005-1.025) Urine Protein (Neg-Trace) mg/dL Urine Glucose (UA) (Negative) mg/dL Urine Ketones (Negative) mg/dL Urine Blood (Negative) Urine Nitrite (Negative) Ur Leukocyte Esterase (Negative) Urine Test (NEGATIVE) COVID-19 (GAGE) (Negative) COVID-19 Clin Com Imaging Data Chest x-ray: Radiologist's impression: FINDINGS: The lungs are clear. There are no pleural effusions. The heart and mediastinal structures are unremarkable. XR/XR chest 2V IMPRESSION: Unremarkable examination. CT scan - chest: Radiologist's impression: CT/CT angio chest PE protocol IMPRESSION: Evaluation of the pulmonary arterial tree is suboptimal secondary to respiratory motion and quantum mottling related to patient body habitus. ? 1. Within the limitation of this exam, there is no evidence of pulmonary embolism. 2. No acute pulmonary abnormalities. ECG Data Attestation: I personally reviewed and interpreted this ECG as follows: ECG interpretation date: 07/22/22 Interpretation: Rate: 98 Rhythm:? normal sinus rhythm [place]:? normal Normal P waves.? Normal MARCE.?? Normal QRS complex.?? ST T wave :?? No ST elevation, no ST depression, T-wave inversions in the inferior and anterior/septal leads qTC: 457 prior studies:? none prior available for review The study has been interpreted contemporaneously by me. Discharge Plan Discharge Clinical Impression: Bronchitis Patient Disposition: Home, Self-Care Instructions: Acute Bronchitis (ED) Additional Instructions: Use albuterol inhaler as needed for shortness of breath or difficulty breathing. Robitussin with codeine cough syrup to use as needed for cough, this may make you drowsy, do not take while driving, or consume alcohol while taking this Contact your primary care provider to schedule a follow-up visit within 1 week. Return to emergency department any new or worsening symptoms or concerns Prescriptions: New codeine-guaifenesin [Guaifenesin AC] 10-100 mg/5 mL liquid 5 ml PO Q6H PRN (Reason: cough) Qty: 118 0RF albuterol sulfate 90 mcg/actuation HFA aerosol inhaler 2 puff inhalation Q6H PRN (Reason: shortness of breath or wheezing) Qty: 6.7 0RF No Action doxycycline hyclate 100 mg tablet 100 mg PO BID 10 Days Qty: 20 0RF sulfamethoxazole-trimethoprim [Bactrim DS] 800-160 mg tablet 1 tab PO BID Qty: 20 0RF clindamycin HCl 300 mg capsule 300 mg PO Q8H 7 Days Qty: 21 0RF oxycodone 5 mg tablet 5 mg PO Q4-6H PRN (Reason: pain) Qty: 7 0RF Rx Instructions: Patient may request fewer tablets than prescribed naproxen 500 mg tablet 500 mg PO BID PRN (Reason: pain) 10 Days Qty: 20 0RF cyclobenzaprine 10 mg tablet 10 mg PO TID PRN (Reason: muscle spasm) 7 Days Qty: 21 0RF Rx Instructions: side effect is drowsiness. Do not at work or while driving.
--- NOTE | 2022-07-22 15:39 | ECG_ITS ---
Test Reason : DIFFICULTY BREATHING Blood Pressure : / mmHG Vent. Rate : 098 BPM Atrial Rate : 098 BPM P-R Int : 172 ms QRS Dur : 086 ms QT Int : 358 ms P-R-T Axes : -08 001 -22 degrees QTc Int : 457 ms Normal sinus rhythm T wave abnormality, consider anterior ischemia Abnormal ECG No previous ECGs available Referred By: Tabitha Hooper Electronically Signed By:DEANN BECKWITH
[2022-07-22 16:00] VITALS: PULSE 90; RESP 18; TEMP 37.2; O2SAT 100
[2022-07-22 16:26] LABS: MANUAL DIFF FLAG NO
[2022-07-22 16:28] LABS: Basophils Absolute Auto 0.1 X10*3/uL (0.0-0.2); Basophils Percent Auto 0.6 % (0-2); Eosinophils Absolute Auto 0.1 X10*3/uL (0.0-0.4); Hematocrit 41.2 % (37.0-47.0); Hemoglobin 13.6 g/dl (12.0-16.0); Imm Gran Abs Auto 0.03 X10*3/uL (0.00-0.03); Imm Gran Pct Auto 0.3 % (0.0-0.4); Lymphocytes Absolute Auto 3.1 X10*3/uL (1.2-4.9); Lymphocytes Percent Auto 28.9 % (20-40); Mean Corpuscular Hemoglobin 28.6 pg (27.0-33.0); Mean Corpuscular Volume 86.7 fL (80.0-98.0); Mean Platelet Volume 8.3 fL (9.4-12.3); Monocytes Absolute Auto 0.8 X10*3/uL (0.1-1.2); Monocytes Percent Auto 7.4 % (2-11); Neutrophils Absolute Auto 6.7 x10*3/uL (2.0-8.3); Neutrophils Percent Auto 61.8 % (45-73); Platelet Count 337 X10*3/uL (160-400); Red Blood Count 4.75 X10*6/uL (4.20-5.50); Red Cell Distribution Width 14.7 % (11.0-16.0); White Blood Count 10.9 X10*3/uL (4.8-10.8)
[2022-07-22 16:30] LABS: Appearance Urine Clear; Color Urine Yellow; Glucose Urine UA Negative (Negative); Leukocyte Esterase Urine Negative (Negative); Nitrite Urine Negative (Negative); Urine Blood Negative (Negative); Urine Ketones Negative (Negative); Urine Protein Negative (Neg-Trace)
[2022-07-22 16:31] LABS: UPreg QC Valid YES; Urine Pregnancy NEGATIVE (NEGATIVE)
[2022-07-22 16:36] LABS: COVID-19 Test Positive (Negative); IDNOW Serial# 9DB6401D
[2022-07-22 16:51] LABS: Alanine Aminotransferase 23 U/L (0-31); Albumin Level 4.6 g/dL (3.5-5.0); Alkaline Phosphatase 86 U/L (39-117); Anion Gap 16 (12-20); Aspartate Amino Transferase 22 U/L (5-31); Bilirubin Total 0.7 mg/dL (0.0-1.0); Blood Urea Nitrogen 14 mg/dL (9-16); Calcium 9.2 mg/dL (8.4-10.2); Carbon Dioxide 23 mmol/L (22-29); Chloride 102 mmol/L (96-108); Creatinine Clr Calc Pharmacy 108.4; Estimated Glomerular Filt Rate > 60; Glucose Random 93 mg/dL (60-115); Potassium 3.4 mmol/L (3.3-5.1); Sodium 138 mmol/L (135-145); Total Protein 8.7 g/dL (6.5-8.0)
[2022-07-22 16:57] LABS: B Type Natriuretic Peptide < 10 pg/mL (<100); Troponin-I High Sensitivity < 3.5 ng/L (<3.5-17.0)
[2022-07-22 16:58] LABS: HCG Quantitative < 2 mIU/mL
[2022-07-22] MEDS: iohexoL 350 MG/ML 100 ML INFUS..BTL IV (17:45)
[2022-07-22 19:08] VITALS: BP 115/46; PULSE 92; RESP 18; O2SAT 100
--- NOTE | 2022-07-22 19:19 | ECG_ITS ---
Test Reason : REPEAT Blood Pressure : / mmHG Vent. Rate : 097 BPM Atrial Rate : 097 BPM P-R Int : 166 ms QRS Dur : 082 ms QT Int : 358 ms P-R-T Axes : -20 -23 -29 degrees QTc Int : 454 ms Normal sinus rhythm T wave abnormality, consider anterior ischemia Abnormal ECG When compared with ECG of 22-JUL-2022 15:51, No significant change was found Referred By: Tabitha Hooper Electronically Signed By:DEANN BECKWITH
== END 2022-07-22 20:02 | disposition home or self-care (01) ==
PROVIDERS: Nurse Practitioner Family; Physician Assistant; Emergency Provider Emergency Medicine
DX: J40 Bronchitis, not specified as acute or chronic (principal); R06.02 Shortness of breath; Z20.822 Contact with and (suspected) exposure to COVID-19; Z79.899 Other long term (current) drug therapy
CPT/HCPCS: 36415; 71046; 71275; 80053; 81003; 81025; 83880; 84484; 84702; 85025; 87635; 93005; 99284; Q9967

== ENCOUNTER 2022-09-04 17:43 | Emergency (ER) | payer MEDICARE, MEDICAID, SELFPAY ==
[2022-09-04 19:02] VITALS: PULSE 97; RESP 18; TEMP 36.9; O2SAT 100; BMI 47.1
--- NOTE | 2022-09-04 20:25 | ED.GENADULT ---
HPI - General Adult General Chief complaint: Dental/Oral Stated complaint: pain in back of mouth, tooth Time Seen by Provider: 09/04/22 19:55 Source: patient Mode of arrival: ambulatory Limitations: no limitations History of Present Illness HPI narrative: 37 yold female presents to the ED for right lower dental pain. patient states has recurrent right lower molar dental infection. patient has scheudled appiontment for extraction with oral surgeon scheduled for later this month. patient states yesterday woke with worsening dental pain. patient denies any facial swelling, change in voice, drooling, shortness of breath, or chest pain. patient states motrin and tyelnol not working. patient states she called her dentist who refused to prescribe antibiotics due to many antibiotic allergies Related Data Previous Rx's Medication Instructions Recorded clindamycin HCl 300 mg capsule 300 mg PO Q8H 7 days #21 caps 09/30/21 oxycodone 5 mg tablet 5 mg PO Q4-6H PRN pain #7 tabs 09/30/21 doxycycline hyclate 100 mg tablet 100 mg PO BID 10 days #20 tabs 11/06/21 cyclobenzaprine 10 mg tablet 10 mg PO TID PRN muscle spasm 7 01/04/22 days #21 tabs naproxen 500 mg tablet 500 mg PO BID PRN pain 10 days #20 01/04/22 tabs sulfamethoxazole 800 1 tab PO BID #20 tabs 07/07/22 mg-trimethoprim 160 mg tablet (Bactrim DS) albuterol sulfate 90 mcg/actuation 2 puff inhalation Q6H PRN 07/22/22 aerosol inhaler shortness of breath or wheezing #6.7 grams codeine 10 mg-guaifenesin 100 mg/5 5 ml PO Q6H PRN cough #118 mL 07/22/22 mL oral liquid (Guaifenesin AC) oxycodone 5 mg capsule 5 mg PO TID PRN pain 3 days #9 caps 09/04/22 sulfamethoxazole 800 1 tab PO Q12H 7 days #14 tabs 09/04/22 mg-trimethoprim 160 mg tablet (Bactrim DS) Allergies Allergy/AdvReac Type Severity Reaction Status Date / Time erythromycin base Allergy Severe ANAPHYLAXIS Verified 09/30/21 12:43 [ERYTHROMYCIN BASE] Penicillins [PENICILLINS] Allergy Severe ANAPHYLAXIS, Verified 09/30/21 12:43 ITCHING clindamycin Allergy Unknown Facial Verified 07/07/22 19:00 Swelling ziprasidone [From GEODON] Allergy Unknown NEUROLOGICA Verified 09/30/21 12:43 L amoxicillin [From Augmentin] Allergy Anaphylaxis Verified 07/07/22 19:00 clavulanic acid Allergy Anaphylaxis Verified 07/07/22 19:00 [From Augmentin] diphenhydramine AdvReac Unknown PANIC Verified 09/30/21 12:43 [From BENADRYL] ATTACK divalproex sodium AdvReac Unknown NEUROLOGICA Verified 09/30/21 12:43 [From DEPAKOTE] L Review of Systems Review of Systems: Right molar pain PMFSH Past Medical History Medical History Depression Migraines Obesity PCOS (polycystic ovarian syndrome) PTSD (post-traumatic stress disorder) Surgical History History of ankle surgery S/P cholecystectomy Social History Social History Advance Directives: No Physical Exam ED Vital Signs: Vital Signs - 24 hr 09/04/22 19:02 Temperature 98.4 F Pulse Rate 97 Respiratory Rate 18 Pulse Oximetry 100 Oxygen Delivery Method Room Air BMI result Body Mass Index 47.1 Const General: cooperative, healthy appearing, comfortable, no acute distress, well developed, alert, awake and Physically active Orientation/consciousness: patient oriented x3 HENMT Other: Negative for facial swelling or neck swelling NEgative for drooling, or hoarsness Head: Yes normal to inspection, Yes No palpable skull fracture present, Yes normocephalic, Yes atraumatic and No abrasion Teeth image: 1. tenderness on palpation. positive for yellow colleciton. NEgative for gum swelling or redness. negative trismus Eyes General: appearance normal, both eyes and all related structures Neck Neck: Yes normal visual inspection, Yes full ROM, Yes no lymphadenopathy, Yes no meningeal signs, Yes trachea midline, Yes supple, No anterior neck swelling and No tender Chest Chest palpation & inspection: normal inspection of the chest and normal palpation of entire chest wall Resp Effort & Inspection: normal respiratory effort and able to speak in complete sentences Auscultation: clear to auscultation bilaterally Cardio Jugular venous distension: no JVD Heart sounds: S1 normal heart sound present and S2 normal heart sound present GI Inspection: Yes normal to inspection and No abdominal wall ecchymosis Palpation (GI): Soft to palpation, not firm, nontender, no guarding and not rigid General: No CVA tenderness and Yes no CVA tenderness Back/Spine/Pelvis Back: no CVA tenderness, No CVA tenderness and No back tenderness Skin General skin exam: no rashes or lesions noted and elasticity normal Neuro General: patient oriented x3, gait normal, no meningeal signs and CN's II-XI intact bilaterally Cranial nerves: Yes CN's II-XII intact bilaterally Extrem General: Yes normal to inspection and Yes full ROM Psych Appearance: grossly normal, well kempt and not disheveled Course Course Course Narrative: Dental pain Reevaluation(s) Reevaluation #1: patient given toradol Time: 20:36 Medical Decision Making MDM Narrative Medical decision making narrative: Dental pain Discharge Plan Discharge Clinical Impression: Toothache Patient Disposition: Home, Self-Care Instructions: Toothache (ED) Additional Instructions: REturn to the ED immediatley for any facial swelling, fever, chills, neck swelling, drooling, chest pain, shortness of breath, or any other concerning symptoms. Please follow up with your dentists Prescriptions: New sulfamethoxazole-trimethoprim [Bactrim DS] 800-160 mg tablet 1 tab PO Q12H 7 Days Qty: 14 0RF oxycodone 5 mg capsule 5 mg PO TID PRN (Reason: pain) 3 Days Qty: 9 0RF Rx Instructions: Partial Fill upon patient request. No Action doxycycline hyclate 100 mg tablet 100 mg PO BID 10 Days Qty: 20 0RF sulfamethoxazole-trimethoprim [Bactrim DS] 800-160 mg tablet 1 tab PO BID Qty: 20 0RF clindamycin HCl 300 mg capsule 300 mg PO Q8H 7 Days Qty: 21 0RF oxycodone 5 mg tablet 5 mg PO Q4-6H PRN (Reason: pain) Qty: 7 0RF Rx Instructions: Patient may request fewer tablets than prescribed naproxen 500 mg tablet 500 mg PO BID PRN (Reason: pain) 10 Days Qty: 20 0RF cyclobenzaprine 10 mg tablet 10 mg PO TID PRN (Reason: muscle spasm) 7 Days Qty: 21 0RF Rx Instructions: side effect is drowsiness. Do not at work or while driving. codeine-guaifenesin [Guaifenesin AC] 10-100 mg/5 mL liquid 5 ml PO Q6H PRN (Reason: cough) Qty: 118 0RF albuterol sulfate 90 mcg/actuation HFA aerosol inhaler 2 puff inhalation Q6H PRN (Reason: shortness of breath or wheezing) Qty: 6.7 0RF Stand Alone Forms: Work/School Release Interventions: ED Discharge Assessment Last Done: 09/04/22 20:58 Discharge Date/Time: 09/04/22 20:58 Print Language: Chadian
[2022-09-04] MEDS: Ketorolac Tromethamine 30 MG/ML VIAL IM (20:47)
== END 2022-09-04 20:58 | disposition home or self-care (01) ==
PROVIDERS: Emergency Provider Emergency Medicine
DX: K08.89 Other specified disorders of teeth and supporting structures (principal); Z79.899 Other long term (current) drug therapy
CPT/HCPCS: 96372; 99283; 99284; J1885

== ENCOUNTER 2023-04-26 17:59 | Emergency (ER) | payer OTHER, MEDICARE, SELFPAY ==
--- NOTE | ~2023-04-26 | CT_ITS ---
EXAMINATION: NONCONTRAST HEAD CT NONCONTRAST CERVICAL SPINE CT INDICATION INFORMATION: Head and neck pain COMPARISON: 01/04/2022 TECHNIQUE: Separate noncontrast CT examinations of the head and cervical spine were performed. Coronal head CT images and coronal and sagittal cervical spine images were created at the technologist workstation. DLP: 1512 mGy-cm DOSE LOWERING TECHNIQUES: This CT examination was performed using dose optimization techniques as appropriate, variously including the following: - Automated exposure control - Adjustment of mA and/or kV according to patient size (this includes techniques or standardized protocols for targeted exams were dose is matched to indication/reason for exam; i.e. extremities or head) - Use of iterative reconstruction technique FINDINGS: Head: There is no evidence of acute intracranial hemorrhage or territorial infarction. No abnormal mass-effect or midline shift is seen. Devlin to white matter differentiation is well preserved. No extra-axial fluid collections are identified. The ventricles are normal in size. There is no abnormal attenuation within the brain parenchyma. The osseous structures and soft tissues are normal. The mastoid air cells and visualized portions of the paranasal sinuses are well-aerated. Cervical spine: There is anatomic alignment of the vertebral bodies and posterior elements. Vertebral body heights are maintained. Intervertebral disc spaces are preserved. No evidence of acute fracture. No prevertebral soft tissue swelling. Visualized portions of the lung apices are unremarkable. The thyroid gland is unremarkable. CT/CT head/brain wo IV con IMPRESSION: No acute findings identified in the head or cervical spine.
--- NOTE | ~2023-04-26 | CT_ITS ---
EXAMINATION: NONCONTRAST HEAD CT NONCONTRAST CERVICAL SPINE CT INDICATION INFORMATION: Head and neck pain COMPARISON: 01/04/2022 TECHNIQUE: Separate noncontrast CT examinations of the head and cervical spine were performed. Coronal head CT images and coronal and sagittal cervical spine images were created at the technologist workstation. DLP: 1512 mGy-cm DOSE LOWERING TECHNIQUES: This CT examination was performed using dose optimization techniques as appropriate, variously including the following: - Automated exposure control - Adjustment of mA and/or kV according to patient size (this includes techniques or standardized protocols for targeted exams were dose is matched to indication/reason for exam; i.e. extremities or head) - Use of iterative reconstruction technique FINDINGS: Head: There is no evidence of acute intracranial hemorrhage or territorial infarction. No abnormal mass-effect or midline shift is seen. Devlin to white matter differentiation is well preserved. No extra-axial fluid collections are identified. The ventricles are normal in size. There is no abnormal attenuation within the brain parenchyma. The osseous structures and soft tissues are normal. The mastoid air cells and visualized portions of the paranasal sinuses are well-aerated. Cervical spine: There is anatomic alignment of the vertebral bodies and posterior elements. Vertebral body heights are maintained. Intervertebral disc spaces are preserved. No evidence of acute fracture. No prevertebral soft tissue swelling. Visualized portions of the lung apices are unremarkable. The thyroid gland is unremarkable. CT/CT cervical spine wo IV con IMPRESSION: No acute findings identified in the head or cervical spine.
--- NOTE | ~2023-04-26 | XR_ITS ---
EXAMINATION: XR SHOULDER, LEFT CLINICAL INFORMATION: Left shoulder pain COMPARISON: 01/04/2022 TECHNIQUE: Three views of the left shoulder. FINDINGS: No fracture or dislocation. The glenohumeral joint is well aligned. The joint space is maintained. The acromioclavicular joint is intact. The visualized lung is clear. The visualized ribs are intact. XR/XR shoulder LT min 2V IMPRESSION: Normal left shoulder.
[2023-04-26 18:40] VITALS: BP 127/79; PULSE 97; RESP 16; TEMP 36.4; O2SAT 96; BMI 48.7
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
--- NOTE | 2023-04-26 20:32 | PC.NURSE ---
Michel LAMB notified this RN that pt had self removed c-collar after being concerned of nausea. Assisted in replacement of collar. After attending provider saw pt, c-collar was removed with no need to replace.
[2023-04-26 20:34] VITALS: BP 121/62; PULSE 90; RESP 16; TEMP 36.7; O2SAT 98
[2023-04-26] MEDS: Acetaminophen 325 MG TABLET 975 MG PO (20:40)
[2023-04-26] MEDS: Ondansetron ODT 4 MG TAB.RAPDIS TRANSLINGU (20:41)
[2023-04-26 21:43] VITALS: BP 112/74; PULSE 88; RESP 16; TEMP 36.7; O2SAT 96
== END 2023-04-26 21:44 | disposition home or self-care (01) ==
PROVIDERS: Emergency Provider Student in an Organized Health Care Education/Training Program
DX: S16.1XXA Strain of muscle, fascia and tendon at neck level, initial encounter (principal); S39.012A Strain of muscle, fascia and tendon of lower back, initial encounter; S46.912A Strain of unspecified muscle, fascia and tendon at shoulder and upper arm level, left arm, initial encounter; S06.0X0A Concussion without loss of consciousness, initial encounter; M54.2 Cervicalgia; R51.9 Headache, unspecified; V43.52XA Car driver injured in collision with other type car in traffic accident, initial encounter; Y93.9 Activity, unspecified; Y92.410 Unspecified street and highway as the place of occurrence of the external cause; Y99.9 Unspecified external cause status; Z79.899 Other long term (current) drug therapy
CPT/HCPCS: 70450; 72125; 73030; 99284

== ENCOUNTER 2023-07-14 17:10 | Emergency (ER) | payer OTHER, SELFPAY ==
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
[2023-07-14 17:53] VITALS: BP 125/74; PULSE 92; RESP 20; TEMP 36.1; O2SAT 97; BMI 45.6
[2023-07-14] MEDS: oxyCODONE HCl Immed Release 5 MG TABLET PO (20:40)
[2023-07-14] MEDS: Ibuprofen 600 MG TABLET PO (20:40)
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
[2023-07-14 21:01] LABS: Appearance Urine Clear; Color Urine Yellow; Glucose Urine UA Negative (Negative); Leukocyte Esterase Urine Negative (Negative); Nitrite Urine Negative (Negative); Specific Gravity - Urine 1.025 (1.005-1.025); Urine Blood Negative (Negative); Urine Ketones Negative (Negative); Urine Pregnancy NEGATIVE (NEGATIVE); Urine Protein Negative (Neg-Trace)
[2023-07-14 21:02] LABS: UPreg QC Valid YES
== END 2023-07-14 22:31 | disposition home or self-care (01) ==
PROVIDERS: Emergency Provider Emergency Medicine
DX: Z04.1 Encounter for examination and observation following transport accident (principal); M25.551 Pain in right hip; M54.9 Dorsalgia, unspecified
CPT/HCPCS: 72100; 73502; 81003; 81025; 99283; 99284

== ENCOUNTER 2023-11-04 06:25 | Emergency (ER) | payer MEDICARE, SELFPAY ==
[2023-11-04 06:33] VITALS: BP 136/74; PULSE 92; RESP 20; TEMP 36.7; O2SAT 98; BMI 47.9
[2023-11-04 06:56] LABS: IDNOW Serial# 6674DD1D; Strep A Nucleic Acid Negative (Negative)
[2023-11-04 07:22] LABS: Influenza A PCR NEGATIVE (Negative); Influenza B PCR NEGATIVE (Negative); Resp Syncy Virus RNA Qual PCR NEGATIVE (Negative); SARS COV2 PCR INHOUSE POSITIVE (Negative)
[2023-11-04 10:08] VITALS: BP 128/70; PULSE 80; RESP 18; O2SAT 98
--- NOTE | 2023-11-04 10:29 | ED.URI ---
HPI - URI/Sore Throat General Chief Complaint: Upper Respiratory Symptoms Stated Complaint: flu like symptoms/upper respiratory Time Seen by Provider: 11/04/23 10:15 History of Present Illness HPI Narrative: Patient complains of runny nose mild cough infrequent no sputum no shortness of breath, mild sore throat but tolerating p.o. easily no body aches no fatigue no shortness of breath no chest pain no nausea vomiting no rash Related Data Previous Rx's Medication Instructions Recorded clindamycin HCl 300 mg capsule 300 mg PO Q8H 7 days #21 caps 09/30/21 oxycodone 5 mg tablet 5 mg PO Q4-6H PRN pain #7 tabs 09/30/21 doxycycline hyclate 100 mg tablet 100 mg PO BID 10 days #20 tabs 11/06/21 cyclobenzaprine 10 mg tablet 10 mg PO TID PRN muscle spasm 7 01/04/22 days #21 tabs naproxen 500 mg tablet 500 mg PO BID PRN pain 10 days #20 01/04/22 tabs sulfamethoxazole 800 1 tab PO BID #20 tabs 07/07/22 mg-trimethoprim 160 mg tablet (Bactrim DS) albuterol sulfate 90 mcg/actuation 2 puff inhalation Q6H PRN 07/22/22 aerosol inhaler shortness of breath or wheezing #6.7 grams codeine 10 mg-guaifenesin 100 mg/5 5 ml PO Q6H PRN cough #118 mL 07/22/22 mL oral liquid (Guaifenesin AC) oxycodone 5 mg capsule 5 mg PO TID PRN pain 3 days #9 caps 09/04/22 sulfamethoxazole 800 1 tab PO Q12H 7 days #14 tabs 09/04/22 mg-trimethoprim 160 mg tablet (Bactrim DS) cyclobenzaprine 10 mg tablet 10 mg PO TID PRN muscle spasm #12 04/26/23 tabs ibuprofen 600 mg tablet 600 mg PO Q8H PRN pain #20 tabs 07/14/23 Allergies Allergy/AdvReac Type Severity Reaction Status Date / Time erythromycin base Allergy Severe ANAPHYLAXIS Verified 07/14/23 18:01 [ERYTHROMYCIN BASE] Penicillins [PENICILLINS] Allergy Severe ANAPHYLAXIS, Verified 07/14/23 18:01 ITCHING clindamycin Allergy Unknown Facial Verified 07/14/23 18:01 Swelling ziprasidone [From GEODON] Allergy Unknown NEUROLOGICA Verified 07/14/23 18:01 L amoxicillin [From Augmentin] Allergy Anaphylaxis Verified 07/14/23 18:01 clavulanic acid Allergy Anaphylaxis Verified 07/14/23 18:01 [From Augmentin] diphenhydramine AdvReac Unknown PANIC Verified 07/14/23 18:01 [From BENADRYL] ATTACK divalproex sodium AdvReac Unknown NEUROLOGICA Verified 07/14/23 18:01 [From DEPAKOTE] L PMFSH Past Medical History Source: nursing notes reviewed Medical History Depression Migraines Obesity PCOS (polycystic ovarian syndrome) PTSD (post-traumatic stress disorder) Surgical History History of ankle surgery S/P cholecystectomy Social History Social History Alcohol intake: never Substance Use Type: Marijuana Advance Directives: No Advance Directives Information Provided: No Physical Exam Vital Signs: Vital Signs: Last Vital Signs Temp 98.1 F 11/04/23 06:33 Pulse 80 11/04/23 10:08 Resp 18 11/04/23 10:08 BP 128/70 11/04/23 10:08 Pulse Ox 98 11/04/23 10:08 O2 Del Method Room Air 11/04/23 10:08 BMI result Body Mass Index 47.9 General appearance comfortable cooperative no distress no respiratory distress speaking full sentences The ears are both clear with no redness to tympanic membrane no blockage of canal no tenderness with movement to the ear The sinuses are nontender the nose is not congested The pharynx is clear without redness swelling or exudate voice is normal membranes moist Neck is supple Chest is clear to auscultate auscultation with full symmetric equal breath sounds Heart no murmur Extremities range of motion x4 Skin no rash Course Course Course Narrative: Viral testing was positive for COVID, negative for RSV negative for flu negative for strep Well-appearing patient is discharged diagnosis COVID, she refused the Paxlovid Medical Decision Making Lab Data Labs: Lab Results 11/04/23 11/04/23 Range/Units 06:35 06:40 Influenza Type A (PCR) NEGATIVE (Negative) Influenza Type B (PCR) NEGATIVE (Negative) RSV RNA Qual (PCR) NEGATIVE (Negative) SARS-CoV-2 RNA (RT-PCR) POSITIVE A (Negative) S. pyogenes GrpA IBAN Negative (Negative) Discharge Plan Discharge Clinical Impression: COVID-19 Patient Disposition: Home, Self-Care Additional Instructions: You tested positive for COVID, but do not have any signs of any dangerous illness at this point and are very well-appearing Your exam was normal I wrote a note for 5 days off work Return any time for difficulty breathing vomiting dehydration pain any worse condition or any concerns Prescriptions: No Action doxycycline hyclate 100 mg tablet 100 mg PO BID 10 Days Qty: 20 0RF sulfamethoxazole-trimethoprim [Bactrim DS] 800-160 mg tablet 1 tab PO BID Qty: 20 0RF sulfamethoxazole-trimethoprim [Bactrim DS] 800-160 mg tablet 1 tab PO Q12H 7 Days Qty: 14 0RF oxycodone 5 mg capsule 5 mg PO TID PRN (Reason: pain) 3 Days Qty: 9 0RF Rx Instructions: Partial Fill upon patient request. clindamycin HCl 300 mg capsule 300 mg PO Q8H 7 Days Qty: 21 0RF oxycodone 5 mg tablet 5 mg PO Q4-6H PRN (Reason: pain) Qty: 7 0RF Rx Instructions: Patient may request fewer tablets than prescribed naproxen 500 mg tablet 500 mg PO BID PRN (Reason: pain) 10 Days Qty: 20 0RF cyclobenzaprine 10 mg tablet 10 mg PO TID PRN (Reason: muscle spasm) 7 Days Qty: 21 0RF Rx Instructions: side effect is drowsiness. Do not at work or while driving. codeine-guaifenesin [Guaifenesin AC] 10-100 mg/5 mL liquid 5 ml PO Q6H PRN (Reason: cough) Qty: 118 0RF albuterol sulfate 90 mcg/actuation HFA aerosol inhaler 2 puff inhalation Q6H PRN (Reason: shortness of breath or wheezing) Qty: 6.7 0RF cyclobenzaprine 10 mg tablet 10 mg PO TID PRN (Reason: muscle spasm) Qty: 12 0RF ibuprofen 600 mg tablet 600 mg PO Q8H PRN (Reason: pain) Qty: 20 0RF Stand Alone Forms: Work/School Release
== END 2023-11-04 10:55 | disposition home or self-care (01) ==
PROVIDERS: Emergency Provider Emergency Medicine
DX: U07.1 COVID-19 (principal); R05.9 Cough, unspecified; R09.89 Other specified symptoms and signs involving the circulatory and respiratory systems
CPT/HCPCS: 0241U; 87651; 99283

== ENCOUNTER 2025-10-26 16:23 | Emergency (ER) | payer OTHER, SELFPAY ==
--- OUTSIDE RECORDS SUMMARY | 2023-02-04 13:44 | XMS_ITS | Encounter Summary ---
Author Organization [facility] Address [address] [place] [address] [place] [phone] Phone Care Team Providers Care Destination Specialist Name Role Phone Arian Hatfield MD Unavailable [phone] Jessee Ellington DO Unavailable Rachel Garza MD Primary Care Provider [phone] Encounter Details Date Type Department Care Team (Late st Contact Info) Description 02/04/2023 2:44 PM EDT Hospital Encounter [facility] [address] [place] [id number] Vidhi Kilgore CNP [address] [place] [address] [phone] [email or web address] Social History Tobacco Use Types Packs/Day Years Used Date Smoking Tobacco: Never Smokeless Tobacco: Never Alcohol Use Standard Drinks/Week Comments Not Currently 0 (1 standard drink = 0.6 oz pur e alcohol) Education Answer Date Recorded Are you interested in more education? Not on karissa e 03/15/2023 Are you concerned about learning? Not on file 03/15/2023 No 03/15/2023 No 03/15/2023 Food Answer Date Recorded Within the past 6 months we worried whether our food would run out before we got money to buy more. I choose not to answer 09/30/2025 Within the past 6 months the food we bought just didn't last and we didn't have enough money to get more. I choose not to answer 09/30/2025 Residential Stability Answer Date Recor ded What is your housing situation today? I do not have housing (staying in a hotel, in a half-way, living outside on the street, on a beach, in a car, or in a park) 09/30/2025 How many times have you move d in the past 12 months? Two or more times 09/30/2025 Paying for Meds Answer Date Recorded Do you have trouble paying for medicines? Unable to assess 09/30/2025 Paying Utility Bills Answer Date Record ed Do you have trouble paying y our heating or electricity bill? I choose not to answer 09/30/2025 Transportation Answer Date Recorded Has the lack of transportati on kept you from medical appointments or from getting medications? No 10/01/2025 Digital Access Answer Date Recorded No 09/30/2025 Yes 09/30/2025 Do you have reliable internet access at home? Ye s 09/30/2025 Do you have a device (e.g., phone, tablet, computer) with a working camera? Yes 09/30/2025 Intimate Partner Violence Answer Date R ecorded Are you denied basic needs s uch as food, clothing, or medical care? No 09/30/2025 In the past 12 months have y ou been in a relationship with a person who hurts, threatens, or tries to control you? No 09/30/2025 Are you denied basic needs s uch as food, clothing, or medical care? No 09/30/2025 In the past 12 months have y ou been in a relationship with a person who hurts, threatens, or tries to control you? No 09/30/2025 Comments No Sex and Gender Information Value Date Recorded Sex Assigned at Female 06/11/2019 6:04 PM EDT Legal Sex Female 9:12 PM EDT Gender Identity Female 06/11/2019 6:04 PM EDT Sexual Orientation Straight 06/11/2019 6: 04 PM EDT Occupation Industry Job Start Date Job End Date Student Not on file Not on file Not on file documented as of this encounter Functional Status * Calculated C-SSRS Risk Score (Lifetime/Recent) Answer Date of Assessment Author No Risk Indicated 09/30/2025 11:49 AM Zachary Trevino, EVARISTO * [place] Suicide Severity Rating Scale (Screener/Recent Self-Report) Question Answer Date of Assessment Author 1. Wish to be (Past 1 Month) No 025 11:49 AM Zachary Trevino RN 2. Non-Specific Active Suici les Thoughts (Past 1 Month) No 09/30/2025 11:49 AM Zachary Trevino RN 6. Suicidal Behavior (Lifetime) No 11:49 AM Zachary Trevino RN documented as of this encounter Plan of Treatment Upcoming Encounters Date Type Department Care Team (Late st Contact Info) Description 10/04/2025 Procedure Pass [address] [place] [address] 10/11/2025 Procedure Pass [address] [id number] 11/02/2025 11:45 AM EST Office Visit [facility] Internal Medicine [address] [place] [phone] Faustino Vincent MD [address] [place] [address] 11/07/2025 9:15 AM EST Appointment [address] [place] [address] Messi Murray PA-C [address] [place] [phone] 11/16/2025 7:30 AM EST Office Visit [facility] OBGYN & Midwifery [address] [place] [address] [place] [address] Courtney Luke CNM [facility] [address] [place] [address] 11/19/2025 2:15 PM EST Appointment [address] [address] Nellie Baez MD [facility] 2nd [place] [phone] [email or web address] 04/07/2026 8:50 AM EDT Office Visit [facility] [address] [place] [phone] Jessee Ellington, DO [address] [place] [id number] [email or web address] documented as of this encounter Procedures Procedure Name Priority Date/Time Associated Diagnosis Comments XR KNEE 4 OR MORE VIEWS (RIGHT) Urgent/patient waiting 02/04/2023 2:49 PM EDT Right anterior knee pain documented in this encounter Results * XR KNEE 4 OR MORE VIEWS (RIGHT) (02/04/2023 2:49 PM EDT) Anatomical Region Laterality Modality Knee Right Computed Radiogr aphy 02/04/2023 3:04 PM EDT Impressions 02/04/2023 3:05 PM EDT No acute osseous abnormality. Narrative 02/04/2023 3:05 PM EDT XR KNEE 4 OR MORE VIEWS (RIGHT) COMPARISON: Right knee radiographs 04/11/2013. FINDINGS: No acute fracture or dislocation. Preserved joint space. Intact soft tissues. Procedure Note Esetla Cuevas MD - 02/04/2023 XR KNEE 4 OR MORE VIEWS (RIGHT) COMPARISON: Right knee radiographs 04/11/2013. FINDINGS: No acute fracture or dislocation. Preserved joint space. Intact softtissues. IMPRESSION: No acute osseous abnormality. us Vidhi Kilgore HAND ALTERATIONS SEAMSTRESS IMG XR LOWER EXTREMITY Mikala l Result documented in this encounter Visit Diagnoses Not on filedocumented in this encounter Additional Health Concerns Assessment Noted Time PHQ-2 Depression Total Score: 2 10/26/20 20 2:02 PM EST documented as of this encounter Care Teams Destination Specialist Relationship Specialty Start Date End Date Rachel Garza MD [address] [place] [address] [address] [place] [address] PCP - General Internal Medicine 09/11/22 07/23/23 Arian Hatfield MD [address] [place] [address], [address] [place] [address] Insurance Assigned Provider Family Medicine 11/04/19 Jessee Ellington DO [address] [place] [address] Endocrinology 06/16/21 documented as of this encounter Additional Source Comments The information contained in this document represents components of the legal health record. It is not the complete legal health record.[facility]
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
--- OUTSIDE RECORDS SUMMARY | 2024-10-06 09:26 | XMS_ITS | Encounter Summary ---
Author Organization [facility] Address [address] [place] [address] [place] [address] Phone Care Team Providers Care Poultry Slaughterer Name Role Phone Arian Hatfield MD Unavailable [phone] Jessee Ellington DO Unavailable Faustino Vincent MD Primary Care Provider [phone] Encounter Details Date Type Department Care Team (Late st Contact Info) Description 10/06/2024 9:26 AM EST Hospital Encounter [facility] [address] [place] [address] Elise Villalobos FNP 12 [place] [address] [email or web address] Social History Tobacco Use Types Packs/Day Years [...] housing (staying in a hotel, in a senior living, living outside on the street, on a [...] 09/30/2025 11:49 AM Zachary Trevino RN * [place] Suicide Severity Rating Scale (Screener/Recent Self-Report) Question [...] st Contact Info) Description 10/04/2025 Procedure [address] [place] [address] 10/11/2025 Procedure Pass [address] [address] 11/02/2025 11:45 AM EST Office Visit [facility] Medical [facility] Internal Medicine [address] [place] [address] Faustino Vincent MD [address] [place] [address] 11/07/2025 9:15 AM EST Appointment [address] [place] [address] Messi Murray PA-C [address] [place] [address] [phone] 11/16/2025 7:30 AM EST Office Visit [facility] O[facility]YN & Midwifery [address] [place] [address] [place] [address] Courtney Luke CNM 22 [facility], [address] [address] 11/19/2025 2:15 PM EST Appointment [address] [address] Nellie Baez MD 15 [facility], 2nd [place] [address] 04/07/2026 8:50 AM EDT Office Visit [facility] [address] [place] [address] Jessee Ellington, DO [address] [place] [phone] [email or web address] documented as of this encounter Procedures Procedure Name Priority Date/Time Associated Diagnosis Comments XR WRIST 3 OR MORE VIEWS (LEFT) Urgent/patient waiting 10/06/2024 9:32 AM EST Sprain of left wrist, initial encounter documented in this encounter Results * XR WRIST 3 OR MORE VIEWS (LEFT) (10/06/2024 9:32 AM EST) Anatomical Region Laterality Modality Wrist Left Computed Radiogr aphy 10/06/2024 9:38 AM [...] originally createdby Tanner Pope. us Elise Villalobos GASOLINE CATALYST OPERATOR IMG XR UPPER EXTREMITY Mikala l Result documented in this encounter Visit Diagnoses Not on filedocumented in this encounter Additional Health Concerns Assessment Noted Time PHQ-2 Depression Total Score: 2 11/19/19 24 9:06 AM EST documented as of this encounter Care Teams Poultry Slaughterer Relationship Specialty Start Date End Date Faustino Vincent MD [address] [place] [address] PCP - General Internal Medicine 07/24/23 Arian Hatfield MD [address] [place] [address], [address] [place] [address] Insurance Assigned Provider Family Medicine 11/04/19 Jessee Ellington DO [address] [place] [address] Endocrinology 06/16/21 documented as of this encounter Additional Source Comments The information contained in this document represents components of the legal health record. It is not the complete legal health record.[facility]
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
[2025-10-26 17:09] VITALS: BP 120/66; PULSE 79; RESP 18; TEMP 36.8; O2SAT 99; BMI 43.3
[2025-10-26 19:20] VITALS: BP 118/68; PULSE 75; RESP 16; TEMP 36.6; O2SAT 100
[2025-10-26 20:08] VITALS: BP 118/68; PULSE 75; RESP 16; TEMP 36.6; O2SAT 100
--- OUTSIDE RECORDS SUMMARY | 2025-10-26 23:20 | XMS_ITS | Clinical Summary ---
Author Organization [facility] ity Address [address] [place] [address] Care Team Providers Care Youth Support Worker Name Role Phone Unavailable Primary Care Provider Unavailabl e Social History Tobacco Use Types Packs/Day Years Used Date Smoking Tobacco: Never Assessed Comments Unknown Sex and Gender Information Value Date Recorded Sex Assigned at Not on file Legal Sex Female 2:24 PM EST Gender Identity Not on file Sexual Orientation Not on file Plan of Treatment Health Maintenance Due Date Last Done Comments DTaP,Tdap,and Td Vaccines (1 - Tdap) 2005 Hepatitis B Vaccines (1 of 3 - 19+ 3-dose series) 2005 Cervical Cancer Screening: P ap Smear 2007 HPV Vaccines (1 - 3-dose SCD M series) 2013 Depression Screening 11/18/2024 COVID-19 Vaccine (1 - 2024-2 6 season) 2025 Influenza Vaccine (#1) 2025 RSV Immunization Adult Patie nts (1 - 1-dose 75+ series) 2061 HIB Vaccines Aged Out No longer eligi ble based on patient's age to complete this topic Hepatitis A Vaccines Aged Out No long er eligible based on patient's age to complete this topic IPV Vaccines Aged Out No longer eligi ble based on patient's age to complete this topic MMR Vaccines Aged Out No longer eligi ble based on patient's age to complete this topic Meningococcal ACWY Vaccine Aged Out N o longer eligible based on patient's age to complete this topic Meningococcal B Vaccine Aged Out No l onger eligible based on patient's age to complete this topic Pneumococcal Vaccine: Pediat rics (0 to 5 Years) and At-Risk Patients (6 to 49 Years) Aged Out No longer eligible b ased on patient's age to complete this topic RSV Immunization Patients Un lucy 20 months Aged Out No longer eligible b ased on patient's age to complete this topic Varicella Vaccines Aged Out No longer eligible based on patient's age to complete this topic
--- OUTSIDE RECORDS SUMMARY | 2025-10-26 23:20 | XMS_ITS | Encounter Summary ---
Author Organization [facility] Address [address] [place] [address] [place] [phone] Phone Care Team Providers Care Wet Suit Gluer Name Role Phone Clotilde Cindy Ceja NP Unavailable [phone] Warren Victor CNP Primary Care Provider Arian Hatfield MD Unavailable [phone] Jessee Ellington DO Unavailable Alison Chavez MD Primary Care Provid er Rachel Garza MD Primary Care Provider Faustino Vincent MD Primary Care Provider Encounter Details Date Type Department Care Team (Late st Contact Info) Description 07/04/2021 Telephone [employer] [address] [phone] Warren Victor, WANDA [address] [facility], [address] [place] [address] [email or web address] Social History Tobacco Use Types Packs/Day Years Used Date Smoking Tobacco: Never Smokeless Tobacco: Never Alcohol Use Standard Drinks/Week Comments Yes 0 (1 standard drink = 0.6 oz pur e alcohol) ~6x/year, socially Comments No Sex and Gender Information Value Date Recorded Sex Assigned at Female 06/11/2019 6:04 PM EDT Legal Sex Female 9:12 PM EDT Gender Identity Female 06/11/2019 6:04 PM EDT Sexual Orientation Straight 06/11/2019 6: 04 PM EDT Occupation Industry Job Start Date Job End Date Student Not on file Not on file Not on file documented as of this encounter Plan of Treatment Upcoming Encounters Date Type Department Care Team (Late st Contact Info) Description 10/04/[address] [place] [address] 10/11/[address] [address] 11/02/2025 11:45 AM EST Office Visit [facility] Internal Medicine [address] [place] [address] Faustino Vincent MD [address] [place] [address] 11/07/2025 9:15 AM EST Appointment [address] [place] [address] Messi Murray PA-C [address] [place] [address] [email or web address] 11/16/2025 7:30 AM EST Office Visit [facility] OBGYN & Midwifery [address] [place] [address] [place] [address] Courtney Luke CNM [address] [facility], [address] [place] [address] 11/19/2025 2:15 PM EST Appointment [address] [address] Nellie Baez MD [address] [facility], 2nd [place] [address] 04/07/2026 8:50 AM EDT Office Visit [facility] [address] [place] [address] Jessee Ellington DO [address] [place] [address] documented as of this encounter Visit Diagnoses Not on filedocumented in this encounter Additional Health Concerns Infection Onset Date Last Indicated Resolved Time CoV-Presumed 07/06/2022 07/06/2022 07/27/2022 1:21 AM EDT CoV-Risk 10/16/2022 10/16/2022 10/27/2022 1:22 AM EST Assessment Noted Time PHQ-2 Depression Total Score: 2 10/26/20 20 2:02 PM EST documented as of this encounter Care Teams Wet Suit Gluer Relationship Specialty Start Date End Date Warren Victor CNP [address] [facility], [address] [address] [email or web address] PCP - General Family Medicine 11/04/19 04/02/22 Alison Chavez MD [address] [place] [phone] [email or web address] PCP - General Family Medicine 04/03/22 09/10/22 Rachel Garza MD [address] [place] [phone] PCP - General Internal Medicine 09/11/22 07/23/23 Faustino Vincent MD [address] [place] [phone] PCP - General Internal Medicine 07/24/23 Cindy Mabry, FASHION SHOW DIRECTOR [address] [place] [phone] [email or web address] Historical LMR Provider 09/08/17 11/25/21 Arian Hatfield MD [address] [place] [address], [address] [place] [address] [email or web address] Insurance Assigned Provider Family Medicine 11/04/19 Jessee Ellington DO [address] [place] [phone] [email or web address] Endocrinology 06/16/21 documented as of this encounter Additional Source Comments The information contained in this document represents components of the legal health record. It is not the complete legal health record.[facility]
--- OUTSIDE RECORDS SUMMARY | 2025-10-26 23:20 | XMS_ITS | Clinical Summary ---
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 EST 10/01/2025 1:33 PM EST us Sara Baugh MD LAB URINE ORDERABLES Final Result Performing Organization Address City/[facility]/ZIP Co de Phone Number [address] [address] * (ABNORMAL) Erythrocyte Sedimentation Rate (ESR) (10/01/2025 5:05 AM EST) ESR 44(H) 0 - 20 mm/h 10/01/2025 5:48 AM [facility] Blood (Blood) Venipuncture / Unknown 10/01/2025 5:05 AM EST 10/01/2025 5:26 AM EST us Filiberto Coker PA-C LAB BLOOD BKR ORDERABLE S Final Result Performing Organization Address [facility] Co de Phone Number [address] [address] * (ABNORMAL) CBC (10/01/2025 5:05 AM EST) WBC 8.93 4.00 - 11.00 K/uL 10/01/2025 5:32 AM [facility] RBC 3.67(L) 4.00 - 5.20 M/uL 10/01/2025 5:32 AM [facility] Hemoglobin 10.4(L) 12.0 - 16.0 g/dL 10/01/2025 5:32 AM [facility] Hematocrit 31.5(L) 36.0 - 46.0 % 10/01/2025 5:32 AM [facility] MCV 85.8 80.0 - 100.0 fL 10/01/2025 5:32 AM [facility] MCH 28.3 27.0 - 31.0 pg 10/01/2025 5:32 AM [facility] MCHC 33.0 32.0 - 36.0 g/dL 10/01/2025 5:32 AM [facility] PLT 247 150 - 450 K/uL 10/01/2025 5:32 AM [facility] MPV 8.6 8.4 - 12.0 fL 10/01/2025 5:32 AM [facility] RDW-CV 13.1 11.5 - 14.5 % 10/01/2025 5:32 AM [facility] Absolute NRBC 0.00 <=0.00 K cells/uL 10/01/2025 5:32 AM [facility] NRBC 0.0 <=0.0 /100 WBCs 10/01/2025 5:32 AM [facility] Blood (Blood) Venipuncture / Unknown 10/01/2025 5:05 AM EST 10/01/2025 5:26 AM EST Filiberto Coker PA-C LAB BLOOD BKR ORDERABLE S Final Result [address] [address] * (ABNORMAL) C-Reactive Protein (CRP) (10/01/2025 5:05 AM EST) [facility] Signature C Reactive Protein 145.2(H) <10.0 mg/L 10/01/2025 5:56 AM [facility] Comment:NOTE: This reference range is for the evaluation of inflammation. Order CRP, High Sensitivity for cardiac risk status evaluation. Blood (Blood) Venipuncture / Unknown 10/01/2025 5:05 AM EST 10/01/2025 5:26 AM EST Filiberto Coker PA-C LAB BLOOD BKR ORDERABLE S Final Result [address] [address] * (ABNORMAL) Basic Metabolic Panel (BMP) (10/01/2025 5:05 AM EST) Only the most recent of2 resultswithin the time period is included. Sodium 139 136 - 145 mmol/L 10/01/2025 5:56 AM [facility] Potassium 3.5 3.4 - 5.1 mmol/L 10/01/2025 5:56 AM [facility] Chloride 108(H) 98 - 107 mmol/L 10/01/2025 5:56 AM [facility] CO2 20 20 - 31 mmol/L 10/01/2025 5:56 AM [facility] Anion Gap 11 3 - 17 mmol/L 10/01/2025 5:56 AM [facility] BUN 9 6 - 23 mg/dL 10/01/2025 5:56 AM [facility] Creatinine 0.50 0.50 - 1.00 mg/dL 10/01/2025 5:56 AM [facility] eGFR 122 >59 mL/min/1.7 3m2 10/01/2025 5:56 AM [facility] Comment:Estimated glomerular filtration rate calculated using the CKD-EPI refit equation. Glucose 87 70 - 99 mg/dL 10/01/2025 5:56 AM [facility] Calcium 8.1(L) 8.5 - 10.5 mg/dL 10/01/2025 5:56 AM [facility] Blood (Blood) Venipuncture / Unknown 10/01/2025 5:05 AM EST 10/01/2025 5:26 AM EST us Filiberto Coker PA-C LAB BLOOD BKR ORDERABLE S Final Result [facility] [address] [place] [address] * ECG 12-LEAD (09/30/2025 8:39 PM EST) Ventricular Rate EKG/MIN 88 BPM [facility] Atrial Rate 88 BPM [facility] NM Interval 172 ms [facility] QRS Duration 112 ms [facility] QT Interval 390 ms [facility] QTC Interval 471 ms [facility] P [place] -26 degrees [facility] R Wave [place] -10 degrees [facility] T Wave [place] -23 degrees [facility] 09/30/2025 8:39 PM EST 10/01/2025 8:18 AM EST Narrative [facility] - 10/01/2025 8:18 AM EST Normal sinus rhythm Incomplete right bundle branch block Nonspecific T wave abnormality Prolonged QT Abnormal ECG When compared with ECG of 26-Jun-2023 09:45, Incomplete right bundle branch block is now Present Confirmed by Ktoa Joe ([id number]) on 10/01/2025 8:18:35 AM Filiberto Coker PA-C ECG ORDERABLES Final R esult [facility] * (ABNORMAL) Lactate, Whole Blood (09/30/2025 6:31 PM EST) [facility] Lactate, Whole Blood 2.1(H) 0.5 - 2.0 mmol/L 09/30/2025 6:38 PM EST [facility] Blood (Blood, Venous) Venipuncture / Unknown 09/30/2025 6:31 PM EST 09/30/2025 6:34 PM EST us Filiberto Coker PA-C LAB BLOOD BKR ORDERABLE S Final Result Performing Organization Address City/[facility]/ZIP Co de Phone Number [address] [address] * Blood Culture, Routine (09/30/2025 6:31 PM EST) Only the most recent of2 resultswithin the time period is included. Pathologist [facility] Blood Culture/Test No growth at 5 days 10/05/2025 6:46 PM EST [facility] Blood (Blood) Venipuncture / Unknown 09/30/2025 6:31 PM EST 09/30/2025 6:35 PM EST us Filiberto Coker PA-C LAB MICROBIOLOGY CULTUR E ORDERABLES Final Result [address] [address] * CT ABDOMEN/PELVIS WITH CONTRAST (09/30/2025 2:54 PM EST) MGB IMG RECOMMENDATION COMMENT Complex 14 mm left renal cyst; Differential : left renal enhancing component [facility] Anatomical Region Laterality Modality Abdomen, Pelvis Computed Tomogra phy 09/30/2025 4:05 PM EST Impressions 09/30/2025 4:15 PM EST 1. Acute sigmoid diverticulitis, with 2.6 cm intramural abscess. No free pneumoperitoneum. 2. Complex 49 mm right ovarian cyst, possibly hemorrhagic cyst. Further characterization with pelvic ultrasound is recommended. 3. Complex 14 mm left renal cyst, with possible enhancing component versus internal debris. Further characterization with nonemergent renal MRI is recommended. Narrative 09/30/2025 4:[address] ABDOMEN/PELVIS WITH CONTRAST Referring clinician's provided indication for this examination in Epic: * LLQ abdominal pain TECHNIQUE: Multidetector-row CT of the abdomen and pelvis was performed after administration of intravenous contrast using tailored dose modulation techniques. Images were reconstructed in the axial, coronal, and sagittal planes. COMPARISON: 04/27/2022 FINDINGS: Lower Chest: No consolidation or pleural effusions. Liver: No focal lesions. Biliary: Cholecystectomy. No biliary ductal dilatation. Spleen: Mild splenomegaly (13.7 cm AP). No focal lesions. Pancreas: No masses or ductal dilatation. Adrenal Glands: No nodules. Kidneys/Ureters: No stones or hydronephrosis. Horseshoe kidney. Complex 14 mm interpolar cyst with possible enhancing component or internal debris posteriorly (4:366). Bowel: Sigmoid colon wall thickening and fat stranding consistent with acute diverticulitis. Intramural fluid collection with small volume gas measures 26 x 22 x 26 mm (4:74; 5:61), consistent with an intramural abscess. No free pneumoperitoneum. Normal appendix. Small hiatal hernia. Peritoneum/Retroperitoneum: Small volume ascites. No pneumoperitoneum. Lymph Nodes: No lymphadenopathy. Pelvic Organs/Bladder: 49 mm complex right ovarian cyst with suspected debris posteriorly (4:347). Decompressed bladder. Vessels: No abdominal aortic aneurysm. Patent portal vein. Bones/Soft Tissues: No significant abnormality. Procedure Note Charbel Marquez MD - 09/30/2025 CT ABDOMEN/PELVIS WITH CONTRAST Referring clinician's provided indication for this examination in Epic: *LLQ abdominal pain TECHNIQUE: Multidetector-row CT of the abdomen and pelvis was performedafter administration of intravenous contrast using tailored dosemodulation techniques. Images were reconstructed in the axial, coronal,and sagittal planes. COMPARISON: 04/27/2022 FINDINGS: Lower Chest: No consolidation or pleural effusions. Liver: No focal lesions. Biliary: Cholecystectomy. No biliary ductal dilatation. Spleen: Mild splenomegaly (13.7 cm AP). No focal lesions. Pancreas: No masses or ductal dilatation. Adrenal Glands: No nodules. Kidneys/Ureters: No stones or hydronephrosis. Horseshoe kidney. Complex 14mm interpolar cyst with possible enhancing component or internal debrisposteriorly (4:366). Bowel: Sigmoid colon wall thickening and fat stranding consistent withacute diverticulitis. Intramural fluid collection with small volume gasmeasures 26 x 22 x 26 mm (4:74; 5:61), consistent with an intramuralabscess. No free pneumoperitoneum. Normal appendix. Small hiatal hernia. Peritoneum/Retroperitoneum: Small volume ascites. No pneumoperitoneum. Lymph Nodes: No lymphadenopathy. Pelvic Organs/Bladder: 49 mm complex right ovarian cyst with suspecteddebris posteriorly (4:347). Decompressed bladder. Vessels: No abdominal aortic aneurysm. Patent portal vein. Bones/Soft Tissues: No significant abnormality. IMPRESSION: 1. Acute sigmoid diverticulitis, with 2.6 cm intramural abscess. No freepneumoperitoneum. 2. Complex 49 mm right ovarian cyst, possibly hemorrhagic cyst. Furthercharacterization with pelvic ultrasound is recommended. 3. Complex 14 mm left renal cyst, with possible enhancing component versusinternal debris. Further characterization with nonemergent renal MRI isrecommended. us Yanet Kilpatrick PA-C IMG CT ABD/PELVI S Final Result * Human Chorionic Gonadotropin (HCG), Qualitative, Blood (09/30/2025 12:05 PM EST) hCG Qualitative Negative Negative 2:23 PM [facility] Blood (Blood) Venipuncture / Unknown 09/30/2025 12:05 PM EST 09/30/2025 12:22 PM EST us Berry Gordillo MD LAB BLOOD BKR ORDERABLES Edited Result - Final Performing Organization Address City/State/[facility] Co de Phone Number [address] [phone] * (ABNORMAL) CBC and Differential (09/30/2025 12:05 PM EST) WBC 13.20(H) 4.00 - 11.00 K/uL 09/30/2025 12:35 PM [facility] RBC 4.52 4.00 - 5.20 M/uL 09/30/2025 12:35 PM [facility] Hemoglobin 12.6 12.0 - 16.0 g/dL 09/30/2025 12:35 PM [facility] Hematocrit 38.8 36.0 - 46.0 % 09/30/2025 12:35 PM [facility] MCV 85.8 80.0 - 100.0 fL 09/30/2025 12:35 PM [facility] MCH 27.9 27.0 - 31.0 pg 09/30/2025 12:35 PM [facility] MCHC 32.5 32.0 - 36.0 g/dL 09/30/2025 12:35 PM [facility] MPV 8.5 8.4 - 12.0 fL 09/30/2025 12:35 PM [facility] RDW-CV 13.2 11.5 - 14.5 % 09/30/2025 12:35 PM [facility] PLT 347 150 - 450 K/uL 09/30/2025 12:35 PM [facility] Neutrophils 80.8 % 09/30/2025 12:35 PM [facility] Lymphocytes 11.3 % 09/30/2025 12:35 PM [facility] Monocytes 7.1 % 09/30/2025 12:35 PM [facility] Eosinophils 0.4 % 09/30/2025 12:35 PM [facility] Basophils 0.2 % 09/30/2025 12:35 PM [facility] Imm Grans 0.2 % 09/30/2025 12:35 PM [facility] NRBC 0.0 <=0.0 /100 WBCs 09/30/2025 12:35 PM [facility] Absolute Neutrophils 10.66(H) 1.92 - 7.60 K/uL 09/30/2025 12:35 PM [facility] Absolute Lymphocytes 1.49 0.72 - 4.10 K/uL 09/30/2025 12:35 PM [facility] Absolute Monocytes 0.94 0.16 - 1.10 K/uL 09/30/2025 12:35 PM [facility] Absolute Eosinophils 0.05 0.00 - 0.50 K/uL 09/30/2025 12:35 PM [facility] Absolute Basophils 0.03 0.00 - 0.15 K/uL 09/30/2025 12:35 PM [facility] Absolute Imm Grans 0.03 0.00 - 0.09 K/uL 09/30/2025 12:35 PM [facility] Absolute NRBC 0.00 <=0.00 K cells/uL 09/30/2025 12:35 PM [facility] Absolute Neutrophils 10.66(H) 1.92 - 7.60 K/uL 09/30/2025 12:35 PM [facility] Comment:Automated cell count . Manual ANC may differ if performed. Diff Type Auto 09/30/2025 12:35 PM [facility] Blood (Blood) Venipuncture / Unknown 09/30/2025 12:05 PM EST 09/30/2025 12:22 PM EST Berry Gordillo MD LAB BLOOD BKR ORDERABLES Final Result Performing Organization Address City/[facility]/ZIP Co de Phone Number [address] [address] * Hepatic Panel (LFTs) (09/30/2025 12:05 PM EST) AST 18 <33 U/L 09/30/2025 1:03 PM [facility] ALT 16 <34 U/L 09/30/2025 1:03 PM [facility] Alkaline Phosphatase 92 40 - 130 U/L 09/30/2025 1:03 PM [facility] Bilirubin, Total 0.5 0.0 - 1.2 mg/dL 09/30/2025 1:03 PM [facility] Bilirubin, Direct 0.2 0.0 - 0.3 mg/dL 09/30/2025 1:03 PM [facility] Total Protein 8.0 6.4 - 8.3 g/dL 09/30/2025 1:03 PM [facility] Albumin 4.2 3.5 - 5.2 g/dL 09/30/2025 1:03 PM [facility] Globulin 3.8 1.9 - 4.1 g/dL 09/30/2025 1:03 PM [facility] Blood (Blood) Venipuncture / Unknown 09/30/2025 12:05 PM EST 09/30/2025 12:22 PM EST us Berry Gordillo MD LAB BLOOD BKR ORDERABLES Final Result Performing Organization Address [facility]/ZIP Co de Phone Number [address] [address] * Lipase (09/30/2025 12:05 PM EST) Lipase 40 13 - 60 U/L 09/30/2025 1:03 PM [facility] Blood (Blood) Venipuncture / Unknown 09/30/2025 12:05 PM EST 09/30/2025 12:22 PM EST us Berry Gordillo MD LAB BLOOD BKR ORDERABLES Final Result Performing Organization Address [facility] Co de Phone Number [address] [address] * (ABNORMAL) Vaginitis Panel (09/14/2025 10:55 AM EDT) Only the most recent of2 resultswithin the time period is included. Bacterial Vaginosis Positive(A) Negative [facility] Domi Species Detected(A) Not Detected [facility] Domi glabrata Not Detected Not Detected [facility] Trichomonas Vaginalis Not Detected Not Detected [facility] Other (Vaginal) 09/14/2025 1 0:55 AM EDT 09/14/2025 3:22 PM EDT [facility] LAB GENERAL ORDERABLES Final Res ult Performing Organization Address [facility] Co de Phone Number [address] [address] * (ABNORMAL) Urine sediment (09/14/2025 10:55 AM EDT) Only the most recent of2 resultswithin the time period is included. WBC 5-10(A) NONE SEEN /hpf [facility] RBC NONE SEEN NONE SEEN /hpf [facility] URINE EPITHELIAL 0-4(A) NONE SEEN [facility] MUCUS NONE SEEN NONE SEEN /hpf [facility] BACTERIA Trace(A) NONE SEEN /hpf [facility] 09/14/2025 10:5 5 AM EDT 09/14/2025 3:22 PM EDT [facility] URINE ORDERABLES Final Resul t Performing Organization Address [facility] Co de Phone Number [address] [address] * (ABNORMAL) POCT Wet Prep (08/24/2025 1:33 PM EDT) Only the most recent of2 resultswithin the time period is included. WBC - POCT Many(A) Absent, Few [facility] RBC - POCT Few Absent, Few [facility] Bacteria - POCT Many(A) Absent, Few [facility] Yeast - POCT Absent Absent [facility] Epithelial - Clue Cells - POCT Many(A) Absent [facility] Epithelial - Squamous Cells - POCT Many [facility] Trichomonas - POCT Absent Absent [facility] Other - POCT pH 6.5 [facility] Other 08/24/2025 1:33 PM EDT [facility] POCT ENTER/EDIT ORDERABLES F inal Result [facility] [address] [place] [address], [place] * HSV PCR Other fluid (specify below) (08/19/2025 2:21 PM EDT) HSV 1, PCR Negative Negative [facility] DPT OF LAB MED AND PAT+ HSV 2, PCR Negative Negative [facility] PAT[facility] Comment: (NOTE) ADDITIONAL INFORMATION This test was developed and its performance characteristics determined by [facility] in a manner consistent with CLIA requirements. This test has not been cleared or approved by the U.S. Food and Drug Administration. SPECIMEN SOURCE HSV rectum [facility] DPT OF LAB MED AND PAT+ Comment:Corrected on 08/24 A T 0052: previously reported as OTHER FLUID Other (Other fluid (specify below)) 08/19/2025 2:21 PM EDT 08/19/2025 4:14 PM EDT [facility] LAB GENERAL ORDERABLES Edited Re sult - Final [facility] DPT OF LAB MED AND PAT+ [address] [place] [address] * Chlamydia trachomatis and Neisseria gonorrhoeae Nucleic Acid Amplification (08/09/2025 1:34 PM EDT) Pathologist [facility] CHLAMYDIA TRACHOMATIS Not Detected Not Detected [facility] NEISERIA GONORRHOEAE Not Detected Not Detected [facility] SPECIMEN TYPE STAT [facility] Other (Cervical) 08/09/2025 1:34 PM EDT 08/09/2025 3:27 PM EDT Sheridan Llanes MD LAB GENERAL ORDERABLES Final Res ult Performing Organization Address City/[facility]/ZIP Co de Phone Number [address] [address] * (ABNORMAL) POCT CRISTOBAL Wet Prep (08/09/2025 1:17 PM EDT) Pathologist [facility] Yeast - POCT Absent Absent Whiff Test - POCT Positive(A) Negative Other 08/09/2025 1:17 PM EDT Sheridan Llanes MD LAB POCT ENTER/EDIT ORDERABLES F inal Result * (ABNORMAL) Urine Culture (08/09/2025 11:48 AM EDT) Pathologist [facility] Special Requests None Reflexed from [id number] 08/09/2025 4:08 PM EDT [facility] Urine Culture >100,000 colony forming units per mL MIXED MYRON (3 OR MORE COLONY TYPES) Culture indicates contamination . Please resubmit if necessary.(A) 08/10/2025 12:22 PM EDT [facility] Urine 08/09/2025 11:4 8 AM EDT 08/09/2025 3:29 PM EDT Sheridan Llanes MD LAB MICROBIOLOGY CULTURE ORDERAB LES Final Result Performing Organization Address [facility]/ZIP Co de Phone Number [address] [address] * Pap Test (10/29/2024 12:00 AM EST) Report [address] [address] Floating Operator: Javon Peña MD [facility] [facility] Cytology Report FINAL DIAGNOSIS A. PAP SMEAR (THIN PREP) CE: SPECIMEN ADEQUACY: Satisfactory for evaluation; transformation zone present. INTERPRETATION: NEGATIVE FOR INTRAEPITHELIAL LESION OR MALIGNANCY. Coccobacilli consistent with shift in myron This specimen was analyzed by the automated ThinPrep Imaging System ([employer].) and the selected valle were reviewed by a digital program manager. Electronically Signed Out By: ESME Ha(ASCP) ESME Renner(ASCP) The Pap test is a screening test primarily for squamous cancers and precursors and has associated false-negative and false-positive results. New technologies such as liquid-based preparations may decrease but will not eliminate all false-negative results. Regular sampling and follow-up of unexplained clinical signs and symptoms are recommended to minimize false negative results. CLINICAL HISTORY Date of Last Menstrual Period: Not Provided Menstrual History: Unknown Other Clinical Conditions: Screening Pap Previous Unsatisfactory SPECIMEN SOURCE A: PAP SMEAR (THIN PREP) CE Patient Name: HAILEY JONES : 1985 (Age: 39) Sex: F Institution: [facility] Location: [facility] Date of Collection: 10/29/2024 Date of Reported: 11/04/2024 14:38 Results to: Alejo Bell MD, BS [facility] Final Diagnosis A. PAP SMEAR (THIN PREP) CE: SPECIMEN ADEQUACY: Satisfactory for evaluation; transformation zone present. INTERPRETATION: NEGATIVE FOR INTRAEPITHELIAL LESION OR MALIGNANCY. Coccobacilli consistent with shift in myron This specimen was analyzed by the automated ThinPrep Imaging System ([employer].) and the selected valle were reviewed by a digital program manager. [facility] Conversion Type (Conversion Source) 10/29/2024 10/30/2024 9:04 AM EST us Alejo Bell MD CYTOLOGY ORDERABLES Edited Re sult - Final [address] [address] * Hepatitis C antibody, qualitative (11/19/2023 10:14 AM EST) HCV NON-REACTIV E NON-REACTI VE [facility] Blood 11/19/2023 10:1 4 AM EST 11/19/2023 10:20 AM EST us Alisia Brown MD LAB BLOOD BKR ORDERABLES Final Result [address] [address] * Glucose (07/12/2020 8:44 AM EDT) GLUCOSE 98 70 - 99 mg/dL [facility] Blood 07/12/2020 8:44 AM EDT 07/12/2020 8:46 AM EDT us Kuldip Scruggs MD LAB BLOOD BKR ORDERABLES Final Result [address] [address] from Last 3 Months or Most Recently Relevant to Health Maintenance Insurance [place] P[place] BLUE REPLACEMENT MEDICARE PART A & B [facility] MEDICARE PPO BLUE REPLACEMENT MEDICARE PART A & B [facility] MEDICARE PPO BLUE REPLACEMENT MEDICARE PART A & B MEDICARE PPO BLUE REPLACEMENT MEDICARE PART A & B MEDICARE PPO BLUE REPLACEMENT MEDICARE PART A & B [place] RE[place] MEDICARE PART A & B [facility] MEDICARE PPO BLUE REPLACEMENT MEDICARE PART A & B [facility] MEDICARE PPO BLUE REPLACEMENT MEDICARE PART A & B [facility] MEDICARE PPO BLUE REPLACEMENT MEDICARE PART A & B [facility] MEDICARE PPO BLUE REPLACEMENT MEDICARE PART A & B [employer] INSURANCE SAF[employer]Y INSURANCE [place] P[place] BLUE REPLACEMENT Advance Directives For more information, please contact: [phone] (9AM - 5PM [facility], Saturday-Saturday) * Full Code (Latest Code Status on File) Date Activated Date Inactivated Comments 09/30/2025 6:05 PM Question Answer Comments Code Status Confirmed With: Patient Code Status Communicated To: Inpatient Attending Care Teams Ems Educator Relationship Specialty Start Date End Date Faustino Vincent MD [address] [place] [id number] [email or web address] PCP - General Internal Medicine 07/24/23 Arian Hatfield MD [address] [place] [address], [address] [place] [address] Insurance Assigned Provider Family Medicine 11/04/19 Jessee Ellington DO [address] [place] [id number] Endocrinology 06/16/21 Additional Source Comments The information contained in this document represents components of the legal health record. It is not the complete legal health record.[facility]
--- OUTSIDE RECORDS SUMMARY | 2025-10-26 23:20 | XMS_ITS | Encounter Summary ---
Author Organization [facility] Address [address] [place] [address] [place] [address] Phone Care Team Providers Care Data Management Consultant Name Role Phone Christi Scanlon CNM Unavailable Cindy Mabry NOTARY PUBLIC Unavailable [phone] Mariposa Donohue MD Unavailable Jose Alberto Nair PA-C Unavailable Vandana Garcia MD Unavailable [phone] Alejo Bell MD Unavailable Charbel Delatorre MD Unavailable Warren Victor CNP Primary Care Provider [phone] Arian Hatfield MD Unavailable [phone] Jessee Ellington DO Unavailable Alison Chavez MD Primary Care Provid er Rachel Garza MD Primary Care Provider Faustino Vincent MD Primary Care Provider [phone] Encounter Details Date Type Department Care Team (Late st Contact Info) Description 04/29/2020 Transcribe Orders [facility] Main [address] [place], [place] [id number] Mary Sosa, RUBI [address] [place] [address] Social History Tobacco Use Types Packs/Day Years Used Date Smoking Tobacco: Never Smokeless Tobacco: Never Alcohol Use Standard Drinks/Week Comments Not Currently 0 (1 standard drink = 0.6 oz pur e alcohol) ~6x/year Comments No Sex and Gender Information Value [...] (Late st Contact Info) Description 10/04/[address] [place] [address] 10/11/2025 Procedure [facility], Ct Scan [address] [address] 11/02/2025 11:45 AM EST Office Visit [facility] [place] [facility] [address] [place] [address] Faustino Vincent MD [address] [place] [address] 11/07/2025 9:15 AM EST Appointment [address] [place] [address] Messi Murray PA-C [address] [place] [address] 11/16/2025 7:30 AM EST Office Visit [facility] Midwifery [address] [place] [address] [place] [address] Courtney Luke CNM 22 [facility], [address] [address] 11/19/2025 2:15 PM EST Appointment [facility], Ct Scan - [facility] [address] [place] [address] Nellie Baez MD 15 [facility], 2nd [place] [address] 04/07/2026 8:50 AM EDT Office Visit [facility] 22 [place] [address] Jessee Ellington DO 22 [place] [address] [email or web address] documented as of this encounter Visit Diagnoses Not on filedocumented in this encounter Additional Health Concerns Infection Onset Date Last Indicated Resolved Time CoV-Risk 05/23/2021 05/23/2021 06/02/2021 1:39 AM EDT CoV-Presumed 07/06/2022 07/06/2022 07/27/2022 1:21 AM EDT CoV-Risk 10/16/2022 10/16/2022 10/27/2022 1:22 AM EST Assessment Noted Time PHQ-2 Depression Total Score: 2 11/10/20 19 10:46 AM EST documented as of this encounter Care Teams Data Management Consultant Relationship Specialty Start Date End Date Warren Victor CNP 22 [facility], 201 [place] [address] [email or web address] PCP - General Family Medicine 11/04/19 04/02/22 Alison Chavez MD [address] [address] [email or web address] PCP - General Family Medicine 04/03/22 09/10/22 Rachel Garza MD [address] [place] [address] [email or web address] PCP - General Internal Medicine 09/11/22 07/23/23 Faustino Vincent MD [address] [place] [address] [email or web address] PCP - General Internal Medicine 07/24/23 Christi Scanlon CNM 30 [place] [address] Historical LMR Provider 09/08/17 Cindy Mabry NP 30 [place] [address] [email or web address] Historical LMR Provider 09/08/17 11/25/21 Mariposa Donohue MD [address] [place] [address] Historical LMR Provider 09/08/17 Jose Alberto Nair, NATALIEC [address] [place] [address] [facility], [place] [address] [email or web address] Historical LMR Provider 09/08/17 06/15/21 Vandana Garcia MD [address], [place] [address] Historical LMR Provider 09/08/17 Alejo Bell MD [address] [place] [address], [address] [address] [email or web address] Historical LMR Provider 09/08/17 06/15/21 Charbel Delatorre MD [address] [place] [address] Historical LMR Provider 09/08/17 Arian Hatfield MD [address] [place] [address], [address] [place] [address] Insurance Assigned Provider Family Medicine 11/04/19 Jessee Ellington DO [address] [place] [address] Endocrinology 06/16/21 documented as of this encounter Additional Source Comments The information contained in this document represents components of the legal health record. It is not the complete legal health record.[facility]
--- OUTSIDE RECORDS SUMMARY | 2025-10-26 23:20 | XMS_ITS | Encounter Summary ---
Author Organization [facility] Address [address] [facility] [address] [place] [address] Phone Care Team Providers Care Wire Transfer Clerk Name Role Phone Arian Hatfield MD Unavailable [phone] Jessee Ellington DO Unavailable Alison Chavez MD Primary Care Provid er Rachel Garza MD Primary Care Provider Faustino Vincent MD Primary Care Provider Encounter Details Date Type Department Care Team (Late st Contact Info) Description 08/02/2022 Transcribe Orders [facility] Phle[facility] Main 30 [place] [address] Nellie Baez MD 15 [facility], 2nd [place] [address] [email or web address] Social History Tobacco Use Types Packs/Day Years [...] st Contact Info) Description 10/04/2025 Procedure Pass [address] [place] [address] 10/11/2025 Procedure Pass [address] [address] 11/02/2025 11:45 AM EST Office Visit [facility] Internal Medicine [address] [place] [address] Faustino Vincent MD 40 [place] [address] 11/07/2025 9:15 AM EST Appointment [address] [place] [address] Messi Murray PA-C [address] [place] [address] 11/16/2025 7:30 AM EST Office Visit [facility] OBGYN & Midwifery [address] [place] [address] [place] [address] Courtney Luke CNM 22 [facility], [address] [place] [address] 11/19/2025 2:15 PM EST Appointment [address] [address] Nellie Baez MD 15 [facility], 2nd [place] [address] 04/07/2026 8:50 AM EDT Office Visit [facility] [address] [place] [address] Jessee Ellington DO 22 [place] [address] [email or web address] documented as of this encounter Visit Diagnoses Not on filedocumented in this encounter Additional Health Concerns Infection Onset Date Last Indicated Resolved Time CoV-Risk 10/16/2022 10/16/2022 10/27/2022 1:22 AM EST Assessment Noted Time PHQ-2 Depression Total Score: 2 10/26/20 20 2:02 PM EST documented as of this encounter Care Teams Wire Transfer Clerk Relationship Specialty Start Date End Date Alison Chavez MD [address] [place] [address] [place] [address] [email or web address] PCP - General Family Medicine 04/03/22 09/10/22 Rachel Garza MD [address] [place] [address] [email or web address] PCP - General Internal Medicine 09/11/22 07/23/23 Faustino Vincent MD [address] [place] [address] [email or web address] PCP - General Internal Medicine 07/24/23 Arian Hatfield MD [address] [place] [address], [address] [address] [email or web address] Insurance Assigned Provider Family Medicine 11/04/19 Jessee Ellington DO [address] [place] [address] [email or web address] Endocrinology 06/16/21 documented as of this encounter Additional Source Comments The information contained in this document represents components of the legal health record. It is not the complete legal health record.[facility]
--- OUTSIDE RECORDS SUMMARY | 2025-10-26 23:20 | XMS_ITS | Encounter Summary ---
Author Organization [facility] Address [address] [place] [address] Phone Care Team Providers Care [employer] Name Role Phone Arian Hatfield MD Unavailable [phone] Jessee Ellington DO Unavailable Faustino Vincent MD Primary Care Provider [phone] Reason for Visit * Reason Onset Date Comments Appointment 10/19/2025 Encounter Details Date Type Department Care Team (Late st Contact Info) Description 10/19/2025 Telephone [facility] [address] [place] [address] [email or web address] Appointment Social History Tobacco Use Types Packs/Day Years [...] housing (staying in a hotel, in a fdc, living outside on the street, on a [...] on file documented as of this encounter Progress Notes * Ana Nagel - 10/19/2025 9:43 AM EST [facility] PEN Top Smart Phrases: 24-48 Hour No-Show Notice If caller not the patient: Name: Relationship: Cancel Appt Visit Type: TRANSITIONAL CARE MGMT SVC VISIT Cancelation Reason: Personal Reasons Cancelation Detail: weather Was Appt Reschedule: No Awareness: I have reiterated our late cancellation policy to the caller. Agent Action: > Reason for Call: NO SHOW > Comment: Enter Cancel Appt date > Route: Route to FD if the No-Show is a future date. > Route: OXBOW SDV and Sick Visit No-Show, route to RN for rescheduling. Do not reschedule. Call Center: Ensure the appt has been cancel from the future tab > Reiterate Scripting: Provide our late cancellation policy to the caller documented in this encounter Plan of Treatment Upcoming Encounters Date Type Department Care Team (Late st Contact Info) Description 10/04/2025 Procedure Pass [address] [place] [address] 10/11/2025 Procedure [facility], Ct Scan - [address] [address] 11/02/2025 11:45 AM EST Office Visit [facility] [place] [facility] [address] [place] [address] Faustino Vincent MD [address] [place] [address] 11/07/2025 9:15 AM EST Appointment [address] [place] [address] Messi Murray PA-C [address] [place] [address] 11/16/2025 7:30 AM EST Office Visit [facility] OBGYN & Midwifery [address] [place] [address] [place] [address] Courtney Luke CNM 22 [facility], [facility] [address] [place] [address] 11/19/2025 2:15 PM EST Appointment [facility], Ct Scan - [facility] [address] [place] [address] Nellie Baez MD 15 [facility], 2nd [place] [address] 04/07/2026 8:50 AM EDT Office Visit [facility] 22 [place] [address] Jessee Ellington DO 22 [place] [address] documented as of this encounter Visit Diagnoses Not on filedocumented in this encounter Additional Health Concerns Assessment Noted Time PHQ-2 Depression Total Score: 1 05/24/20 25 9:57 AM EDT documented as of this encounter Care Teams [employer] Relationship Specialty Start Date End Date Faustino Vincent MD [address] [place] [address] PCP - General Internal Medicine 07/24/23 Arian Hatfield MD 22 [facility], [address] [place] [address] Insurance Assigned Provider Family Medicine 11/04/19 Jessee Ellington DO 22 [place] [address] Endocrinology 06/16/21 documented as of this encounter Additional Source Comments The information contained in this document represents components of the legal health record. It is not the complete legal health record.[facility]
--- OUTSIDE RECORDS SUMMARY | 2025-10-26 23:20 | XMS_ITS | Encounter Summary ---
Author Organization [facility] Address [address] [place] [address] [place] [address] Phone Care Team Providers Care Lance Crewmember/Mlrs Sergeant Name Role Phone Arian Hatfield MD Unavailable [phone] Jessee Ellington DO Unavailable Alison Chavez MD Primary Care Provid er Rachel Garza MD Primary Care Provider [phone] Faustino Vincent MD Primary Care Provider [phone] Encounter Details Date Type Department Care Team (Late st Contact Info) Description 04/12/2022 Procedure Pass [facility], Ct Scan - [address] [address] Social History Tobacco Use Types Packs/Day Years [...] Date of Assessment Author No Risk Indicated 04/14/2022 10:52 AM EDT Burek, Mariely, RN * Jerome Suicide Severity Rating Scale (Screener/Recent Self-Report) Question Answer Date of Assessment Author 1. Wish to be (Past 1 Month) No 022 10:52 AM Mariely Allan RN 2. Non-Specific Active Suici les Thoughts (Past 1 Month) No 04/14/2022 10:52 AM Mariely Allan RN 6. Suicidal Behavior (Lifetime) No 10:52 AM Mariely Allan RN documented as of this encounter Plan of Treatment Upcoming Encounters Date Type Department Care Team (Late st Contact Info) Description 10/04/2025 Procedure Pass [address] [place] [address] 10/11/2025 Procedure Pass [address] [address] 11/02/2025 11:45 AM EST Office Visit [facility] Internal Medicine [address] [place] [address] Faustino Vincent MD [address] [place] [address] 11/07/2025 9:15 AM EST Appointment [address] [place] [address] Messi Murray, LINDA [address] [place] [address] 11/16/2025 7:30 AM EST Office Visit [facility] Midwifery [address] [place] [address] [place] [address] Courtney Luke CNM 22 [facility], [address] [address] 11/19/2025 2:15 PM EST Appointment [address] [place] [address] Nellie Baez MD 15 [facility], 2nd [place] [address] 04/07/2026 8:50 AM EDT Office Visit [facility] 22 [place] [address] Jessee Ellington DO 22 [place] [address] [email or web address] documented as of this encounter Visit Diagnoses Not on filedocumented in this encounter Additional Health Concerns Infection Onset Date Last Indicated Resolved Time CoV-Presumed 07/06/2022 07/06/2022 07/27/2022 1:21 AM EDT CoV-Risk 10/16/2022 10/16/2022 10/27/2022 1:22 AM EST Assessment Noted Time PHQ-2 Depression Total Score: 2 10/26/20 20 2:02 PM EST documented as of this encounter Care Teams Lance Crewmember/Mlrs Sergeant Relationship Specialty Start Date End Date Alison Chavez MD [address] [place] [address] [place] [address] [email or web address] PCP - General Family Medicine 04/03/22 09/10/22 Rachel Garza MD [address] [place] [place] [address] [email or web address] PCP - General Internal Medicine 09/11/22 07/23/23 Faustino Vincent MD [address] [place] [address] [email or web address] PCP - General Internal Medicine 07/24/23 Arian Hatfield MD [address] [place] [address], [address] [place] [address] [email or web address] Insurance Assigned Provider Family Medicine 11/04/19 Jessee Ellington DO 22 [place] [address] [email or web address] Endocrinology 06/16/21 documented as of this encounter Additional Source Comments The information contained in this document represents components of the legal health record. It is not the complete legal health record.[facility]
--- OUTSIDE RECORDS SUMMARY | 2025-10-26 23:20 | XMS_ITS | Encounter Summary ---
Author Organization [facility] Address [address] [place] [address] Phone Care Team Providers Care Regulatory Law Specialist Name Role Phone Arian Hatfield MD Unavailable [phone] Jessee Ellington DO Unavailable Faustino Vincent MD Primary Care Provider Encounter Details Date Type Department Care Team (Late st Contact Info) Description 04/16/2025 Procedure Pass [facility], Ct Scan - [facility] [address] [place] [address] Social History Tobacco Use Types Packs/Day Years [...] before we got money to buy more. Sometimes True 025 Within the past 6 months the food we bought just didn't last and we didn't have enough money to get more. Sometimes True 02/16 Residential Stability Answer Date Recor ded What is your housing situation today? I am stayi ng with others 02/27/2025 How many times have you move d in the past 12 months? Two or more times 02/27/2025 Paying for Meds Answer Date Recorded Do you have trouble paying for medicines? Yes 02/27/2025 Paying Utility Bills Answer Date Record ed Do you have trouble paying your heating or elect ricity bill? Yes 02/27/2025 Transportation Answer Date Recorded Has the lack of transportati on kept you from medical appointments or from getting medications? No 02/27/2025 Digital Access Answer Date Recorded No 02/27/2025 Yes 02/27/2025 Do you have reliable internet access at home? Ye s 02/27/2025 Do you have a device (e.g., phone, tablet, computer) with a working camera? Yes 02/27/2025 Intimate Partner Violence Answer Date R ecorded Are you denied basic needs s uch as food, clothing, or medical care? No 02/27/2025 In the past 12 months have y ou been in a relationship with a person who hurts, threatens, or tries to control you? No 02/27/2025 Are you denied basic needs s uch as food, clothing, or medical care? No 02/27/2025 In the past 12 months have y ou been in a relationship with a person who hurts, threatens, or tries to control you? No 02/27/2025 Comments No Sex and Gender Information Value [...] st Contact Info) Description 10/04/2025 Procedure Pass [facility], [facility] - [address] [place] [address] 10/11/2025 Procedure Pass [facility], Ct Scan - [address] [id number] 11/02/2025 11:45 AM EST Office Visit [facility] [place] [facility] [address] [place] [address] Faustino Vincent MD [address] [place] [address] 11/07/2025 9:15 AM EST Appointment [facility], [facility] - [address] [place] [address] Messi Murray PA-C [address] [place] [address] [email or web address] 11/16/2025 7:30 AM EST Office Visit [facility] OBGYN & Midwifery [address] [place] [address] [place] [address] Courtney Luke CNM 22 [facility], [address] [place] [address] 11/19/2025 2:15 PM EST Appointment [facility], Ct Scan - [address] [address] Nellie Baez MD [address] [place] [address], 2nd [place] [address] 04/07/2026 8:50 AM EDT Office Visit [facility] [address] [place] [address] Jessee Ellington DO 22 [place] [address] documented as of this encounter Visit Diagnoses Not on filedocumented in this encounter Additional Health Concerns Assessment Noted Time PHQ-2 Depression Total Score: 2 12/23/19 25 9:27 AM EST documented as of this encounter Care Teams Regulatory Law Specialist Relationship Specialty Start Date End Date Faustino Vincent MD [address] [place] [address] PCP - General Internal Medicine 07/24/23 Arian Hatfield MD [address] [place] [address], [address] [place] [address] [email or web address] Insurance Assigned Provider Family Medicine 11/04/19 Jessee Ellington DO [address] [place] [address] [email or web address] Endocrinology 06/16/21 documented as of this encounter Additional Source Comments The information contained in this document represents components of the legal health record. It is not the complete legal health record.[facility]
--- OUTSIDE RECORDS SUMMARY | 2025-10-26 23:20 | XMS_ITS | Encounter Summary ---
Author Organization [facility] Address [address] [place] [id number] Phone Care Team Providers Care Cleaner Laboratory Equipment Name Role Phone Christi Scanlon CNM Unavailable Cindy Mabry CERTIFIED WELDING INSPECTOR Unavailable [phone] Mariposa Donohue MD Unavailable Jose Alberto Nair-C Unavailable Vandana Garcia MD Unavailable [phone] Alejo Bell MD Unavailable [phone] Charbel Delatorre MD Unavailable Warren Victor CNP Primary Care Provider Arian Hatfield MD Unavailable [phone] Jessee Ellington DO Unavailable Alison Chavez MD Primary Care Provid er Rachel Garza MD Primary Care Provider Faustino Vincent MD Primary Care Provider [phone] Encounter Details Date Type Department Care Team (Late st Contact Info) Description 05/12/2021 Procedure Pass [facility], Ct Scan - [address] [address] Social History Tobacco Use Types Packs/Day Years [...] Date of Assessment Author No Risk Indicated 05/12/2021 6:09 AM EDT Jose Juan Vizcaino RN * [place] Suicide Severity Rating Scale (Screener/Recent Self-Report) Question Answer Date of Assessment Author 1. Wish to be (Past 1 Month) No 021 6:09 AM EDT Venkat Vizcaino RN 2. Non-Specific Active Suici les Thoughts (Past 1 Month) No 05/12/2021 6:09 AM EDT Venkat Vizcaino RN 6. Suicidal Behavior (Lifetime) No 6:09 AM EDT Venkat Vizcaino RN documented as of this encounter Plan of Treatment Upcoming Encounters Date Type Department Care Team (Late st Contact Info) Description 10/04/2025 Procedure Pass [address] [place] [address] 10/11/2025 Procedure [facility], Ct Scan - [address] [address] 11/02/2025 11:45 AM EST Office Visit [facility] [place] [facility] [address] [place] [address] Faustino Vincent MD [address] [place] [address] [email or web address] 11/07/2025 9:15 AM EST Appointment [address] [place] [address] Messi Murray PA-C 40 [place] [address] 11/16/2025 7:30 AM EST Office Visit [facility] [address] [place] [address] [place] [address] Courtney Luke CNM [address] [facility], [address] [place] [address] 11/19/2025 2:15 PM EST Appointment [facility], Ct Scan - [facility] [address] [place] [address] Nellie Baez MD [address] [facility], 2nd [place] [address] 04/07/2026 8:50 AM EDT Office Visit [facility] [address] [place] [address] Jessee Ellington DO 22 [place] [address] documented as of this encounter Visit Diagnoses Not on filedocumented in this encounter Additional Health Concerns Infection Onset Date Last Indicated Resolved Time CoV-Risk 05/23/2021 05/23/2021 06/02/2021 1:39 AM EDT CoV-Presumed 07/06/2022 07/06/2022 07/27/2022 1:21 AM EDT CoV-Risk 10/16/2022 10/16/2022 10/27/2022 1:22 AM EST Assessment Noted Time PHQ-2 Depression Total Score: 2 10/26/20 2:02 PM EST documented as of this encounter Care Teams Cleaner Laboratory Equipment Relationship Specialty Start Date End Date Warren Victor CNP [address] [facility], [address] [place] [address] [email or web address] PCP - General Family Medicine 11/04/19 04/02/22 Alison Chavez MD [address] [place] [id number] [email or web address] PCP - General Family Medicine 04/03/22 09/10/22 Rachel Garza MD [address] [place] [phone] [email or web address] PCP - General Internal Medicine 09/11/22 07/23/23 Faustino Vincent MD [address] [place] [id number] [email or web address] PCP - General Internal Medicine 07/24/23 Christi Scanlon CNM [address] [place] [phone] Historical LMR Provider 09/08/17 Cindy Mabry CERTIFIED WELDING INSPECTOR [address] [place] [phone] [email or web address] Historical LMR Provider 09/08/17 11/25/21 Mariposa Donohue MD [address] [place] [address] Historical LMR Provider 09/08/17 Jose Alberto Nair PA-C [address] [place] [address] [facility], [place] [address] Historical LMR Provider 09/08/17 06/15/21 Vandana Garcia MD [address] [place] [address] Historical LMR Provider 09/08/17 Alejo Bell MD [address] [place] [address], [address] [place] [address] Historical LMR Provider 09/08/17 06/15/21 Charbel Delatorre MD [facility] [place] [phone] Historical LMR Provider 09/08/17 Arian Hatfield MD [address] [place] [address], [address] [place] [address] Insurance Assigned Provider Family Medicine 11/04/19 Jessee Ellington DO [address] [place] [address] Endocrinology 06/16/21 documented as of this encounter Additional Source Comments The information contained in this document represents components of the legal health record. It is not the complete legal health record.[facility]
--- OUTSIDE RECORDS SUMMARY | 2025-10-26 23:20 | XMS_ITS | Encounter Summary ---
Author Organization [facility] Address [address] [facility] [address] [place] [address] Phone Care Team Providers Care Wharf Attendant Name Role Phone Arian Hatfield MD Unavailable [phone] Jessee Ellington DO Unavailable Faustino Vincent MD Primary Care Provider [phone] Encounter Details Date Type Department Care Team (Late st Contact Info) Description 09/30/2025 Procedure Pass [facility], Ct Scan - [facility] [address] [place] [address] Social History Tobacco Use Types Packs/Day Years [...] housing (staying in a hotel, in a correction, living outside on the street, on a [...] 09/30/2025 11:49 AM Zachary Trevino RN * [place] Suicide Severity Rating Scale (Screener/Recent Self-Report) Question Answer Date of Assessment Author 1. Wish to be (Past 1 Month) No 025 11:49 AM Zachary Trevino RN 2. Non-Specific Active Suici les Thoughts (Past 1 Month) No 09/30/2025 11:49 AM EST Zachary Betancur RN 6. Suicidal Behavior (Lifetime) No 11:49 AM Zachary Trevino RN documented as of this encounter Plan of Treatment Upcoming Encounters Date Type Department Care Team (Late st Contact Info) Description 10/04/2025 Procedure Pass [address] [place] [address] 10/11/2025 Procedure Pass [address] [address] 11/02/2025 11:45 AM EST Office Visit [facility] [address] [place] [address] Faustino Vincent MD 40 [place] [address] 11/07/2025 9:15 AM EST Appointment [address] [place] [address] Messi Murray PA-C [address] [place] [address] 11/16/2025 7:30 AM EST Office Visit [facility] [address] [place] [address] [place] [address] Courtney Luke CNM 22 [facility], [address] [place] [address] 11/19/2025 2:15 PM EST Appointment [address] [address] Nellie Baez MD 15 [facility], 2nd [place] [address] 04/07/2026 8:50 AM EDT Office Visit [facility] 22 [place] [address] [place] [address] [email or web address] documented as of this encounter Visit Diagnoses Not on filedocumented in this encounter Additional Health Concerns Assessment Noted Time PHQ-2 Depression Total Score: 1 05/24/20 25 9:57 AM EDT documented as of this encounter Care Teams Wharf Attendant Relationship Specialty Start Date End Date Faustino Vincent MD [address] [place] [address] [email or web address] PCP - General Internal Medicine 07/24/23 Arian Hatfield MD 22 [facility], [address] [place] [address] [email or web address] Insurance Assigned Provider Family Medicine 11/04/19 Jessee Ellington DO 22 [place] [address] [email or web address] Endocrinology 06/16/21 documented as of this encounter Additional Source Comments The information contained in this document represents components of the legal health record. It is not the complete legal health record.[facility]
== END 2025-10-26 20:08 | disposition home or self-care (01) ==
PROVIDERS: Emergency Provider Student in an Organized Health Care Education/Training Program
DX: M54.2 Cervicalgia (principal); R51.9 Headache, unspecified; V49.49XA Driver injured in collision with other motor vehicles in traffic accident, initial encounter; Y93.9 Activity, unspecified; Y92.410 Unspecified street and highway as the place of occurrence of the external cause
CPT/HCPCS: 70450; 72125; 99283; 99284

== ENCOUNTER → 2025-10-26 16:47 | Outpatient (BNV) | payer MEDICARE, SELFPAY | PROVIDERS: Visit Provider Radiology Diagnostic Radiology | DX: R51.9 Headache, unspecified (principal); S13.4XXA Sprain of ligaments of cervical spine, initial encounter; V89.2XXA Person injured in unspecified motor-vehicle accident, traffic, initial encounter | CPT/HCPCS: 70450; 72125 ==